=== PATIENT | female | born 2000 | race Caucasian/White ===

== ENCOUNTER 2021-06-17 03:06 | Inpatient (IN) ==
[2021-06-17] MEDS ORDERED: ONDANSETRON INJ 2 MG/ML 2 ML VIAL IV STA (03:35)
[2021-06-17] MEDS ORDERED: SODIUM CHLORIDE 0.9% 1000ML 1,000 ML IV ONE (03:35)
[2021-06-17] MEDS ORDERED: MoRPHine SULFATE 2 MG/ML CARP IV STA (03:35)
--- NOTE | 2021-06-17 03:37 | Emergency Department Note ---
Impression & Plan Acute appendicitis ADMIT ED Provider Note HPI: The patient is a 21-year-old female who presents emergency department with a chief complaint of lower abdominal cramping that has been ongoing for the past week. Patient states that last night around 9 PM she developed vomiting. On arrival to the ED the patient is hemodynamically stable, she is in no acute distress on my initial evaluation, she does not have any active vomiting. ROS: -GI: Lower abdominal pain, vomiting overnight *10 point review systems was conducted and is otherwise negative unless stated above *Outpatient medications and allergy history reviewed PE: General: Alert, NAD HEENT: Normocephalic, atraumatic Eyes: Extraocular eye movement is intact, no scleral erythema Pulmonary: Clear to auscultation bilaterally, no wheezing Cardio: Regular rate and rhythm GI: Abdomen is soft, there is tenderness in the right lower quadrant to palpation, no rigidity : No suprapubic tenderness MSK: No evidence of trauma or malformation of the extremities, no edema Skin: No evidence of rash Neuro: Alert, no focal deficits Psychiatric: Cooperative front desk monitor: - An order was placed for continuous cardiac monitoring - Patient was noted to be in sinus rhythm with rate of 90 CT ABDOMEN & PELVIS With Contrast: Impression: There is tubular structure in the right lower quadrant on image 59, series 2 which appears to represent the inflamed appendix. Extensive inflammatory changes seen in the right lower quadrant and right pelvis. The imaging findings are consistent with acute appendicitis Small amount of free fluid seen in the lower abdomen and pelvis. The possibility of appendiceal perforation cannot be excluded. Radiologist: Rojas Mosqueda MD Medical Decision Making: Patient presented to the emergency department with a chief complaint of lower abdominal pain and vomiting overnight. She states she is actually had some lower abdominal pain for about 10 days now. Vomiting to start overnight. IV was established, lab work obtained, lab work shows evidence of a leukocytosis, no critical electrolyte abnormalities are noted. CT imaging of the abdomen pelvis was obtained that shows evidence of acute appendicitis with possible perforation. YAAKOV morales the patient does not have any peritoneal signs, she does have tenderness in the right lower quadrant. She otherwise appears well on my exam and states her pain is improved following medications. I discussed the above findings with the on-call general surgeon, Dr. Cornejo, who is in agreement for admission. Patient will be admitted for surgical intervention, she was given cefoxitin prior to admission and blood cultures were drawn. She was admitted in stable condition. Diagnosis: 1. Lower abdominal pain, acute 2. Nausea and vomiting, acute 3. Acute appendicitis 4. Leukocytosis Disposition: Admission to surgery Stevan Olivares DO Emergency Medicine Past Med/Surg History Medical History (Updated 06/17/21 @ 05:55 by Stevan Olivares DO) Hypothyroidism Social History Smoking Status: Never smoker Preferred Language: Korean Feels Safe at Home: Yes Allergies Allergies Allergy/AdvReac Type Severity Reaction Status Date / Time No Known Allergies Allergy Verified 01/02/19 22:17 Home Meds Home Medications Medication Instructions Recorded Confirmed calcium carbonate 500 mg calcium 500 mg PO DAILY 01/02/19 01/02/19 (1,250 mg) chewable tablet (Calcium 500) conjugated estrogens 0.625 mg 0.625 mg PO DAILY 01/02/19 01/02/19 tablet (Premarin) medroxyprogesterone 150 mg/mL 150 mg IM DIRECTED 01/02/19 01/02/19 intramuscular suspension metronidazole 500 mg tablet 500 mg PO BID 01/02/19 01/02/19 multivitamin 1 tab PO DAILY 01/02/19 01/02/19 Results & Data (ED) Vital Signs Vital Signs - 24 hr 06/17/21 03:11 06/17/21 05:05 Temperature 36.4 C L Temperature Source Temporal Artery Scan Pulse Rate 90 Pulse Rate [Finger] 84 Respiratory Rate 16 20 Respiratory Effort / Characteristics Non-Labored Spontaneous Respiratory Depth Normal Normal Blood Pressure 120/63 Blood Pressure [Right Arm] 107/74 Blood Pressure Mean 82 Blood Pressure Mean [Right Arm] 85 Blood Pressure Position Sitting Pulse Oximetry 97 100 Oxygen Delivery Method Room Air Room Air Sepsis Recent Fever Within 48 Hours No Sepsis New/Unexplained Change in Mental Status No Sepsis Action Taken by Nursing No Action Required Laboratory Data Result diagrams: 06/17/21 03:40 06/17/21 03:40 Lab Results 06/17/21 06/17/21 06/17/21 Range/Units 03:40 03:40 03:40 WBC 14.32 H (4.8-10.8) K/uL RBC 4.51 (4.2-5.4) M/uL Hgb 13.7 (12.0-16.0) g/dL Hct 39.5 (37-47) % MCV 87.6 (80-100) fL MCH 30.4 (25-34) pg MCHC 34.7 (32-36) g/dL RDW Std Deviation 39.6 (36.4-46.3) fL RDW Coeff of Parveen 12.4 (11.5-14.5) % Plt Count 288 (130-400) K/uL MPV 8.9 (7.4-10.4) fL Immature Gran % (Auto) 0.2 % Neut % (Auto) 85.7 % Lymph % (Auto) 8.4 % [place] % (Auto) 5.3 % Eos % (Auto) 0.3 % Baso % (Auto) 0.1 % Neut # (Auto) 12.27 H (1.4-6.5) K/uL Lymph # (Auto) 1.21 (1.2-3.4) K/uL [place] # (Auto) 0.76 H (0.11-0.59) K/uL Eos # (Auto) 0.04 (0-0.5) K/uL Baso # (Auto) 0.01 (0-0.2) K/uL Immature Gran # (Auto) 0.03 H (0.00-0.02) K/uL Sodium 136 (136-145) mmol/L Potassium 3.6 (3.5-5.1) mmol/L Chloride 104 (98-107) mmol/L Carbon Dioxide 24 (21-32) mmol/L Anion Gap 8 (3-11) BUN 6 (6-23) mg/dl Creatinine 0.66 (0.6-1.2) mg/dl Est Cr Clr Drug Dosing 115.5 ml/min Est GFR ( Amer) 145.3 ml/min Est GFR (Non-Af Amer) 125.4 ml/min BUN/Creatinine Ratio 9.1 L (10-20) Glucose 91 (70-99(Fasting)) mg/dl Calcium 8.9 (8.5-10.1) mg/dl Total Bilirubin 0.6 (0.2-1.0) mg/dl AST 12 L (13-39) U/L ALT 10 (7-52) U/L Alkaline Phosphatase 62 (34-104) U/L Total Protein 7.2 (6.0-8.3) gm/dl Albumin 3.9 (3.4-5.0) gm/dl Globulin 3.3 (2.5-4.0) gm/dl Albumin/Globulin Ratio 1.2 (0.9-2) Lipase 9 L (11-82) U/L HCG, Qual Negative (Negative) Urine Color Urine Appearance (Clear) Urine pH (4.5-7.5) Ur Specific [place] (1.000-1.030) Urine Protein (Negative) Urine Glucose (UA) (Negative) Urine Ketones (Negative) Urine Blood (Negative) Urine Nitrite (Negative) Urine Bilirubin (Negative) Urine Urobilinogen (Negative) Ur Leukocyte Esterase (Negative) Urine WBC (Auto) (0-5) /hpf Urine RBC (Auto) (0-4) /hpf U Hyaline Cast (Auto) (0-5) /lpf U Epithel Cells (Auto) (0-5) /lpf Urine Bacteria (Auto) (Negative) 06/17/21 Range/Units 03:40 WBC (4.8-10.8) K/uL RBC (4.2-5.4) M/uL Hgb (12.0-16.0) g/dL Hct (37-47) % MCV (80-100) fL MCH (25-34) pg MCHC (32-36) g/dL RDW Std Deviation (36.4-46.3) fL RDW Coeff of Parveen (11.5-14.5) % Plt Count (130-400) K/uL MPV (7.4-10.4) fL Immature Gran % (Auto) % Neut % (Auto) % Lymph % (Auto) % [place] % (Auto) % Eos % (Auto) % Baso % (Auto) % Neut # (Auto) (1.4-6.5) K/uL Lymph # (Auto) (1.2-3.4) K/uL [place] # (Auto) (0.11-0.59) K/uL Eos # (Auto) (0-0.5) K/uL Baso # (Auto) (0-0.2) K/uL Immature Gran # (Auto) (0.00-0.02) K/uL Sodium (136-145) mmol/L Potassium (3.5-5.1) mmol/L Chloride (98-107) mmol/L Carbon Dioxide (21-32) mmol/L Anion Gap (3-11) BUN (6-23) mg/dl Creatinine (0.6-1.2) mg/dl Est Cr Clr Drug Dosing ml/min Est GFR ( Amer) ml/min Est GFR (Non-Af Amer) ml/min BUN/Creatinine Ratio (10-20) Glucose (70-99(Fasting)) mg/dl Calcium (8.5-10.1) mg/dl Total Bilirubin (0.2-1.0) mg/dl AST (13-39) U/L ALT (7-52) U/L Alkaline Phosphatase (34-104) U/L Total Protein (6.0-8.3) gm/dl Albumin (3.4-5.0) gm/dl Globulin (2.5-4.0) gm/dl Albumin/Globulin Ratio (0.9-2) Lipase (11-82) U/L HCG, Qual (Negative) Urine Color Yellow Urine Appearance Clear (Clear) Urine pH 8.0 H (4.5-7.5) Ur Specific [place] 1.004 (1.000-1.030) Urine Protein Negative (Negative) Urine Glucose (UA) Negative (Negative) Urine Ketones Negative (Negative) Urine Blood Negative (Negative) Urine Nitrite Negative (Negative) Urine Bilirubin Negative (Negative) Urine Urobilinogen Negative (Negative) Ur Leukocyte Esterase 3+ H (Negative) Urine WBC (Auto) >30 H (0-5) /hpf Urine RBC (Auto) 0-4 (0-4) /hpf U Hyaline Cast (Auto) 0 (0-5) /lpf U Epithel Cells (Auto) >30 H (0-5) /lpf Urine Bacteria (Auto) 1+ H (Negative) Administered Medications Discontinued Medications Sodium Chloride (Nss 1000ml) 1,000 mls @ 999 mls/hr IV .Q1H1M ONE Stop: 06/17/21 04:35 Last Infusion: 06/17/21 05:07 Dose: 0 mls/hr Documented by: [id number] Admin: 06/17/21 03:40 Dose: 999 mls/hr Documented by: [id number] Ioversol (Optiray 320 100ml) 100 ml IV ONCE ONE Stop: 06/17/21 04:59 Last Admin: 06/17/21 04:58 Dose: 93 ml Documented by: [id number] Morphine Sulfate (Morphine Sulfate 2 Mg/Ml Carp) 2 mg IV NOW STA Stop: 06/17/21 03:36 Last Admin: 06/17/21 03:39 Dose: 2 mg Documented by: [id number] Ondansetron HCl (Ondansetron Inj 2 Mg/Ml 2 Ml Vial) 4 mg IV NOW STA Stop: 06/17/21 03:36 Last Admin: 06/17/21 03:39 Dose: 4 mg Documented by: [id number] Discharge Plan Visit Data Chief Complaint: Abdominal Pain Stated Complaint: INTENSE STOMACH PAIN AND VOMITING ED Provider: Setvan Olivares Discharge Problem: Acute appendicitis Forms Stand Alone Forms: [facility] Prescriptions Prescriptions: No Action metronidazole 500 mg Tablet 500 mg PO BID RF: 0 Premarin 0.625 mg Tablet 0.625 mg PO DAILY RF: 0 calcium carbonate [Calcium 500] 500 mg calcium (1,250 mg) Tablet,Chewable 500 mg PO DAILY RF: 0 medroxyprogesterone 150 mg/mL Suspension 150 mg IM DIRECTED RF: 0 multivitamin Tablet,Chewable 1 tab PO DAILY RF: 0 Referrals [facility]errals: [facility] [Primary Care Provider] - Discharge Problem: Acute appendicitis Qualifiers: Acute appendicitis type: unspecified acute appendicitis type Qualified Code(s): K35.80 - Unspecified acute appendicitis
[2021-06-17 03:51] LABS: Basophils # (auto) 0.01 K/uL (0-0.2); Basophils % (auto) 0.1 %; Eosinophils # (auto) 0.04 K/uL (0-0.5); Eosinophils % (auto) 0.3 %; Hematocrit (blood only) 39.5 % (37-47); Hemoglobin 13.7 g/dL (12.0-16.0); Immature Granulocytes # (auto) 0.03 K/uL (0.00-0.02); Immature Granulocytes % (auto) 0.2 %; Lymphocytes # (auto) 1.21 K/uL (1.2-3.4); Lymphocytes % (auto) 8.4 %; Mean Corpuscular Hemoglobin 30.4 pg (25-34); Mean Corpuscular Hgb Conc 34.7 g/dL (32-36); Mean Corpuscular Volume 87.6 fL (80-100); Mean Platelet Volume 8.9 fL (7.4-10.4); Monocytes # (auto) 0.76 K/uL (0.11-0.59); Monocytes % (auto) 5.3 %; Neutrophils # (auto) 12.27 K/uL (1.4-6.5); Neutrophils % (auto) 85.7 %; Platelet Count 288 K/uL (130-400); RDW Coefficient of Variation 12.4 % (11.5-14.5); RDW Standard Deviation 39.6 fL (36.4-46.3); Red Blood Count 4.51 M/uL (4.2-5.4); White Blood Count 14.32 K/uL (4.8-10.8)
[2021-06-17 04:29] LABS: Pregnancy Test, Serum Negative (Negative)
[2021-06-17 04:40] LABS: Albumin Globulin Ratio 1.2 (0.9-2); Albumin Level 3.9 gm/dl (3.4-5.0); Appearance Urine Clear (Clear); BUN Creatinine Ratio 9.1 (10-20); Bacteria Urine Automated 1+ (Negative); Bilirubin Urine Negative (Negative); Bilirubin,Total 0.6 mg/dl (0.2-1.0); Blood Urine Negative (Negative); Calcium 8.9 mg/dl (8.5-10.1); Color Urine Yellow; Creatinine Clr Calc Pharmacy 115.5 ml/min; Epithelial Cell Urine Auto >30 /lpf (0-5); Est GFR (African American) 145.3 ml/min; Est GFR (Non-African American) 125.4 ml/min; Globulin 3.3 gm/dl (2.5-4.0); Glucose Urine UA Negative (Negative); Ketones Urine Negative (Negative); Leukocyte Esterase Urine 3+ (Negative); Nitrite Urine Negative (Negative); Potassium 3.6 mmol/L (3.5-5.1); Protein Urine Negative (Negative); RBC Urine Automated 0-4 /hpf (0-4); Specific Gravity Urine 1.004 (1.000-1.030); Total Protein 7.2 gm/dl (6.0-8.3); Urobilinogen Urine Negative (Negative); WBC Urine Automated >30 /hpf (0-5)
[2021-06-17] MEDS ORDERED: OPTIRAY 320 100ml IV ONE (04:58)
[2021-06-17] MEDS ORDERED: cefOXitin 2,000 MG/60 ML BAG IV STA (05:39)
[2021-06-17 05:52] LABS: Cast Urine Automated 0 /lpf (0-5)
--- NOTE | 2021-06-17 07:59 | CT Scan Report ---
CT SCAN OF THE ABDOMEN AND PELVIS WITH IV CONTRAST CLINICAL HISTORY: Lower abdominal pain. Nausea and vomiting. COMPARISON STUDY: Pelvic ultrasound dated 02/06/2019. TECHNIQUE: Following the IV administration of 93 cc of Optiray 320, CT scan of the abdomen and pelvi s is performed from the lung bases to the proximal femora. Images are reviewed in the axial, sagittal , and coronal planes. IV contrast was administered without complication. A dose lowering technique wa s utilized adhering to the principles of ALARA. CT DOSE: 273.44 mGy.cm FINDINGS: Lung bases: The heart is normal in size and without pericardial effusion. The lung bases are clear. Liver: The contrast-enhanced liver is normal in size, contour, and attenuation. There is no intrahepa tic biliary ductal dilatation. The hepatic veins and portal veins are patent. Gallbladder: Unremarkable. Spleen: Normal in size and attenuation. Pancreas: Unremarkable. Adrenal glands: Unremarkable. Kidneys: The contrast enhanced kidneys are normal in size and without hydronephrosis. The kidneys enh ance symmetrically. Abdominal vasculature: The abdominal aorta is normal in course and caliber. Bowel: There is no bowel obstruction. The appendix is markedly abnormal in appearance, best seen on i mage #[id number]. This is dilated, thick-walled, and hyperemic measuring up to 1.4 cm diameter. The appendic eal wall is indistinct and there is extensive inflammation in the right lower quadrant. This likely r epresents ruptured appendicitis. Thick-walled loops of small bowel in the pelvis are likely related t o adjacent appendicitis. Peritoneum: No intraperitoneal free air is identified. There is a small fat-containing umbilical palmer ia.. There is free fluid in the right paracolic gutter and throughout the pelvis. There is peritoneal thickening and enhancement involving a pocket of fluid anterior to the rectum seen on image #337. Th is measures 4.5 x 2.0 cm. There is peritoneal thickening and enhancement in the right lower quadrant around the appendix with phlegmonous change. This likely represents developing abscess. Lymphadenopathy: Mildly enlarged and hyperemic mesenteric lymph nodes in the right lower quadrant are likely reactive. Pelvic viscera: The bladder is distended but otherwise normal in appearance. The uterus is normal as visualized. The right ovary is enlarged and heterogeneous. This likely represents a reactive oophorit is. Follicles are also noted in the left ovary. Skeletal structures: No lytic or blastic lesions are seen. IMPRESSION: 1. Findings are consistent with acute appendicitis with rupture. 2. There is associated peritonitis throughout the pelvis. There is peritoneal thickening and enhancem ent with loculated fluid which likely represents phlegmonous change/developing abscesses. No discrete /drainable collection is identified at this time. 3. Mildly thick-walled loops of small bowel in the pelvis are likely related to adjacent appendicitis and there is also likely a reactive oophoritis of the right ovary. 4. There is no bowel obstruction. 5. Additional findings as above. ACT 112: Negative or not required by law. Electronically signed by: Kameron Overton M.D. 06/17/2021 7:56 AM
[2021-06-17] MEDS ORDERED: MoRPHine SULFATE 2 MG/ML CARP IV PRN (08:15)
[2021-06-17] MEDS ORDERED: ONDANSETRON INJ 2 MG/ML 2 ML VIAL IV PRN ×2 (08:15→10:16)
[2021-06-17] MEDS: LACTATED RINGER'S 1,000 ML IV SCH ×2 (08:46→17:07)
--- NOTE | 2021-06-17 10:01 | History & Physical Bridge Note ---
Date of Service June 17, 2021 History & Physical Bridge Note I have examined the patient, reviewed the History & Physical and in the interval since the performance of the History & Physical I have noted the following changes of clinical significance: no changes noted, I reviewed pt's H/P, labs and CT scan with pt, IMP: ruptured appendicitis, I recommend to do laparoscopic appendectomy, possible open, D/W benefits, risks and alternatives of the surgery, the risks - infection, bleeding, abscess, injury other organs, bowel obstruction, pt understood, she agrees with the surgery, she signed informed consent, I answered all questions, pre-op antibiotic,
[2021-06-17] MEDS: AMPICILLIN/SULBACTAM SOD 1,500 MG in 0.9 % SODIUM CHLORIDE 100 ML IV SCH ×3 (10:02→20:25)
[2021-06-17] MEDS ORDERED: ATROPINE SULFATE 0.1 MG/ML 10ML SYR IV PRN (10:16)
[2021-06-17] MEDS ORDERED: fentaNYL citrate 100 MCG/2 ML VIAL IV PRN (10:16)
[2021-06-17] MEDS ORDERED: LABETALOL HCL IV 5 MG/ML 20ML IV PRN (10:16)
[2021-06-17] MEDS ORDERED: PHENYLEPHRINE 100MCG/ML 5ML SYR IV PRN (10:16)
[2021-06-17] MEDS ORDERED: MEPERIDINE HCL 25 MG/ML CARP/VIAL IV PRN (10:16)
[2021-06-17] MEDS ORDERED: ePHEDrine sulfate 50 MG/ML AMP IV PRN (10:16)
[2021-06-17] MEDS ORDERED: HYDROmorphone INJ 1 MG/ML SYRINGE IV PRN (10:16)
--- NOTE | 2021-06-17 10:19 | Anesthesiology Consultation ---
Date of Service June 17, 2021 Assessment & Plan (1) Encounter for pre-operative examination: Chart Review Chart Review: Acceptable Risk for Surgery (necessary surgery) and Patient NOT seen in Pre Admission Testing Consults Requested none History Surgery Operation Date: 06/17/21 10:00 Proposed Procedures p Laparoscopic Appendectomy - Eveline Ge MD Height/Weight Height: 5 ft 4 in Weight: 59.8 kg Allergies Allergy/AdvReac Type Severity Reaction Status Date / Time No Known Allergies Allergy Verified 06/17/21 07:14 Medications Home Medications Medication Instructions Recorded Confirmed Last Taken magnesium oxide 200 mg PO DAILY 06/17/21 06/17/21 06/14/21 norethindrone 1 mg-ethinyl See Rx Instructions .ROUTE .COMPLEX 06/17/21 06/17/21 06/16/21 estradiol 20 mcg (21)-iron 75 mg (7) tablet ([place] Fe 03/12 (28)) Active Medications Generic Name Dose Route Start Last Admin Trade Name Sukhwinderq PRN Reason Stop Dose Admin Lactated Ringer's 1,000 mls @ 100 mls/hr 06/17/21 08:15 06/17/21 08:46 Lr IV 07/17/21 08:14 100 mls/hr .Q10H ANITA Administration Ampicillin Sodium/Sulbactam 104 mls @ 200 mls/hr 06/17/21 09:00 06/17/21 10:02 Sodium 1,500 mg/ Sodium IV 06/27/21 08:59 200 mls/hr Chloride Q6H ANITA Administration Protocol NPO Date Last Intake of Fluids: 06/17/21 Time Last Intake of Fluids: 05:00 Last Intake of Fluids Comment: water from pt's water bottle at bedside (500mL) - unknown to staff Date Last Intake of Solids: 06/16/21 Time Last Intake of Solids: 00:00 Last Intake of Solids Comment: 1 peep and handful or 2 of goldfish Past Medical History Medical History Hypothyroidism Social History Smoking Status: Never smoker Hx Alcohol Use: No Hx Substance Use: No Physical Exam Vital Signs Last Vital Signs Temp 37.6 C H 06/17/21 08:25 Pulse 82 06/17/21 08:25 Resp 16 06/17/21 08:25 BP 104/62 06/17/21 08:25 Pulse Ox 98 06/17/21 08:25 Testing Laboratory Results 06/17/21 03:40 06/17/21 03:40 Urine Color Yellow 06/17/21 03:40 Urine Appearance Clear (Clear) 06/17/21 03:40 Urine pH 8.0 (4.5-7.5) H 06/17/21 03:40 Ur Specific [place] 1.004 (1.000-1.030) 06/17/21 03:40 Urine Protein Negative (Negative) 06/17/21 03:40 Urine Glucose (UA) Negative (Negative) 06/17/21 03:40 Urine Ketones Negative (Negative) 06/17/21 03:40 Urine Nitrite Negative (Negative) 06/17/21 03:40 Ur Leukocyte Esterase 3+ (Negative) H 06/17/21 03:40 Urine WBC (Auto) >30 /hpf (0-5) H 06/17/21 03:40 Urine RBC (Auto) 0-4 /hpf (0-4) 06/17/21 03:40 U Hyaline Cast (Auto) 0 /lpf (0-5) 06/17/21 03:40 U Epithel Cells (Auto) >30 /lpf (0-5) H 06/17/21 03:40 Urine Bacteria (Auto) 1+ (Negative) H 06/17/21 03:[address] SCAN OF THE ABDOMEN AND PELVIS WITH IV CONTRAST CLINICAL HISTORY: Lower abdominal pain. Nausea and vomiting. COMPARISON STUDY: Pelvic ultrasound dated 02/06/2019. TECHNIQUE: Following the IV administration of 93 cc of Optiray 320, CT scan of the abdomen and pelvis is performed from the lung bases to the proximal femora. Images are reviewed in the axial, sagittal, and coronal planes. IV contrast was administered without complication. A dose lowering technique was utilized adhering to the principles of ALARA. CT DOSE: 273.44 mGy.cm FINDINGS: Lung bases: The heart is normal in size and without pericardial effusion. The lung bases are clear. Liver: The contrast-enhanced liver is normal in size, contour, and attenuation. There is no intrahepatic biliary ductal dilatation. The hepatic veins and portal veins are patent. Gallbladder: Unremarkable. Spleen: Normal in size and attenuation. Pancreas: Unremarkable. Adrenal glands: Unremarkable. Kidneys: The contrast enhanced kidneys are normal in size and without hydronephrosis. The kidneys enhance symmetrically. Abdominal vasculature: The abdominal aorta is normal in course and caliber. Bowel: There is no bowel obstruction. The appendix is markedly abnormal in appearance, best seen on image #291. This is dilated, thick-walled, and hyperemic measuring up to 1.4 cm diameter. The appendiceal wall is indistinct and there is extensive inflammation in the right lower quadrant. This likely represents ruptured appendicitis. Thick-walled loops of small bowel in the pelvis are likely related to adjacent appendicitis. Peritoneum: No intraperitoneal free air is identified. There is a small fat- containing umbilical hernia.. There is free fluid in the right paracolic gutter and throughout the pelvis. There is peritoneal thickening and enhancement involving a pocket of fluid anterior to the rectum seen on image #337. This measures 4.5 x 2.0 cm. There is peritoneal thickening and enhancement in the right lower quadrant around the appendix with phlegmonous change. This likely represents developing abscess. Lymphadenopathy: Mildly enlarged and hyperemic mesenteric lymph nodes in the right lower quadrant are likely reactive. Pelvic viscera: The bladder is distended but otherwise normal in appearance. The uterus is normal as visualized. The right ovary is enlarged and heterogeneous. This likely represents a reactive oophoritis. Follicles are also noted in the left ovary. Skeletal structures: No lytic or blastic lesions are seen. IMPRESSION: 1. Findings are consistent with acute appendicitis with rupture. 2. There is associated peritonitis throughout the pelvis. There is peritoneal thickening and enhancement with loculated fluid which likely represents phlegmonous change/developing abscesses. No discrete/drainable collection is identified at this time. 3. Mildly thick-walled loops of small bowel in the pelvis are likely related to adjacent appendicitis and there is also likely a reactive oophoritis of the right ovary. 4. There is no bowel obstruction. 5. Additional findings as above. ACT 112: Negative or not required by law. Electronically signed by: Kameron Overton M.D. 06/17/2021 7:56 AM
--- NOTE | 2021-06-17 10:23 | Surgery Consultation ---
Date of Consultation June 17, 2021 Assessment & Plan (1) Perforated appendicitis: pt is a 21 year-old female who presents with 1 wek history abdominal pain, IMP: perforated appendicitis, plan, I recommend to do laparoscopic appendectomy, possible open, D/W benefits, risks and alternatives of the surgery, the risks - infection, bleeding, abscess, injury other organs, bowel obstruction, pt understood, she agrees with the surgery, she signed informed consent, I answered all questions, pre-op antibiotic, History of Present Illness Reason for Consultation: appendicitis Requesting Physician: Stevan tovar MD Attending Physician: Brea Cornejo MD History of Present Illness CC: abdominal pain for 1 week, HPI:The patient is a 21-year-old female who presents emergency department with a chief complaint of lower abdominal cramping that has been ongoing for the past week. Patient states that last night around 9 PM she developed vomiting. On arrival to the ED the patient is hemodynamically stable, she is in no acute distress on my initial evaluation, she does not have any active vomiting. I ( Eveline Ge MD ) reviewed pt's H/P, labs, and CT scan with pt, Allergies Allergy/AdvReac Type Severity Reaction Status Date / Time No Known Allergies Allergy Verified 06/17/21 07:14 Home Medications Medication Instructions Recorded Confirmed Type magnesium oxide 200 mg PO DAILY 06/17/21 06/17/21 History norethindrone 1 mg-ethinyl See Rx Instructions .ROUTE .COMPLEX 06/17/21 06/17/21 History estradiol 20 mcg (21)-iron 75 mg (7) tablet ([place] [facility] 03/12 (28)) Patient History Medical History Hypothyroidism Social History Smoking Status: Never smoker Hx Alcohol Use: No Hx Substance Use: No Preferred Language: Welsh Communication Ability: Effective Beliefs That Will Affect Care: None Current Living Situation: Other Feels Safe at Home: Yes Assistive Devices: Glasses Review of Systems Constitutional: as per Subjective / HPI no distress Eyes: as per Subjective / HPI Respiratory: as per Subjective / HPI Cardiovascular: as per Subjective / HPI Gastrointestinal: as per Subjective / HPI Musculoskeletal: as per Subjective / HPI Neurologic: as per Subjective / HPI Psychiatric: as per Subjective / HPI Endocrine: as per Subjective / HPI Hematologic / Lymphatic: as per Subjective / HPI Physical Exam Constitutional: WD/WN, vitals as above Eyes: PERRL, conjunctivae normal, anicteric sclerae Neck: trachea midline, no thyromegaly Respiratory: normal respiratory effort, lungs clear to auscultation Cardiovascular: RRR, no murmur, no edema Gastrointestinal (Abdomen): soft, tenderness at RLQ wit bound pain, no distend, BS + Musculoskeletal: no cyanosis or clubbing, extremities motor strength 5/5 Neurologic: patellar DTR's 2+ bilat, sensation intact Psychiatric: A+Ox3, euthymic affect Results & Data ([facility]) Vital Signs (Past 12 Hours) Vital Signs Temp Pulse Pulse Resp BP BP Pulse Ox 06/17/21 08:25 37.6 C H 82 16 104/62 98 06/17/21 07:00 79 15 110/70 97 06/17/21 05:54 91 H 14 117/73 98 06/17/21 05:05 84 20 107/74 100 06/17/21 03:11 36.4 C L 90 16 120/63 97 Laboratory Results Abnormal lab results 06/17/21 06/17/21 06/17/21 Range/Units 03:40 03:40 03:40 WBC 14.32 H (4.8-10.8) K/uL Neut # (Auto) 12.27 H (1.4-6.5) K/uL [place] # (Auto) 0.76 H (0.11-0.59) K/uL Immature Gran # (Auto) 0.03 H (0.00-0.02) K/uL BUN/Creatinine Ratio 9.1 L (10-20) AST 12 L (13-39) U/L Lipase 9 L (11-82) U/L Urine pH 8.0 H (4.5-7.5) Ur Leukocyte Esterase 3+ H (Negative) Urine WBC (Auto) >30 H (0-5) /hpf U Epithel Cells (Auto) >30 H (0-5) /lpf Urine Bacteria (Auto) 1+ H (Negative) Diagnostic Findings CT SCAN OF THE ABDOMEN AND PELVIS WITH IV CONTRAST CLINICAL HISTORY: Lower abdominal pain. Nausea and vomiting. COMPARISON STUDY: Pelvic ultrasound dated 02/06/2019. TECHNIQUE: Following the IV administration of 93 cc of Optiray 320, CT scan of the abdomen and pelvis is performed from the lung bases to the proximal femora. Images are reviewed in the axial, sagittal, and coronal planes. IV contrast was administered without complication. A dose lowering technique was utilized adhering to the principles of ALARA. CT DOSE: 273.44 mGy.cm FINDINGS: Lung bases: The heart is normal in size and without pericardial effusion. The lung bases are clear. Liver: The contrast-enhanced liver is normal in size, contour, and attenuation. There is no intrahepatic biliary ductal dilatation. The hepatic veins and portal veins are patent. Gallbladder: Unremarkable. Spleen: Normal in size and attenuation. Pancreas: Unremarkable. Adrenal glands: Unremarkable. Kidneys: The contrast enhanced kidneys are normal in size and without hydronephrosis. The kidneys enhance symmetrically. Abdominal vasculature: The abdominal aorta is normal in course and caliber. Bowel: There is no bowel obstruction. The appendix is markedly abnormal in appearance, best seen on image #291. This is dilated, thick-walled, and hyperemic measuring up to 1.4 cm diameter. The appendiceal wall is indistinct and there is extensive inflammation in the right lower quadrant. This likely represents ruptured appendicitis. Thick-walled loops of small bowel in the pelvis are likely related to adjacent appendicitis. Peritoneum: No intraperitoneal free air is identified. There is a small fat- containing umbilical hernia.. There is free fluid in the right paracolic gutter and throughout the pelvis. There is peritoneal thickening and enhancement involving a pocket of fluid anterior to the rectum seen on image #337. This measures 4.5 x 2.0 cm. There is peritoneal thickening and enhancement in the right lower quadrant around the appendix with phlegmonous change. This likely represents developing abscess. Lymphadenopathy: Mildly enlarged and hyperemic mesenteric lymph nodes in the right lower quadrant are likely reactive. Pelvic viscera: The bladder is distended but otherwise normal in appearance. The uterus is normal as visualized. The right ovary is enlarged and heterogeneous. This likely represents a reactive oophoritis. Follicles are also noted in the left ovary. Skeletal structures: No lytic or blastic lesions are seen. IMPRESSION: 1. Findings are consistent with acute appendicitis with rupture. 2. There is associated peritonitis throughout the pelvis. There is peritoneal thickening and enhancement with loculated fluid which likely represents phlegmonous change/developing abscesses. No discrete/drainable collection is identified at this time. 3. Mildly thick-walled loops of small bowel in the pelvis are likely related to adjacent appendicitis and there is also likely a reactive oophoritis of the right ovary. 4. There is no bowel obstruction. 5. Additional findings as above.
[2021-06-17] MEDS ORDERED: LIDOCAINE 1% LOCAL 20 ML VIAL ONE (10:24)
[2021-06-17] MEDS ORDERED: BUPIVACAINE 0.5 % 5 MG/1 ML MPF 30ML VIAL ONE (10:24)
[2021-06-17] MEDS ORDERED: BACITRACIN OINT 15 GM TUBE ONE (10:24)
[2021-06-17] MEDS ORDERED: fentaNYL citrate 100 MCG/2 ML VIAL ONE ×2 (10:30→11:48)
[2021-06-17] MEDS ORDERED: MIDAZOLAM HCL 1 MG/ML 2ML VIAL ONE (10:31)
[2021-06-17] MEDS ORDERED: PROPOFOL IV EMULSION 10 MG/ML 20 ML VIAL IV ONE ×2 (10:31→10:32)
[2021-06-17] MEDS ORDERED: NEOSTIGMINE METHYLSULFATE 1 MG/ML 10ML VIAL ONE (10:32)
[2021-06-17] MEDS ORDERED: LIDOCAINE 2% 2 ML VIAL/AMP(20MG/ML) INFIL ONE (10:32)
[2021-06-17] MEDS ORDERED: GLYCOPYRROLATE 0.2 MG/ML VIAL ONE (10:32)
[2021-06-17] MEDS ORDERED: ROCURONIUM BROMIDE 10 MG/ML 5 ML VIAL IV ONE (10:32)
[2021-06-17] MEDS ORDERED: ONDANSETRON INJ 2 MG/ML 2 ML VIAL ONE (10:32)
[2021-06-17] MEDS ORDERED: DEXAMETHASONE SOD INJ 4 MG/ML VIAL ONE (10:32)
[2021-06-17] MEDS ORDERED: PHENYLEPHRINE 100MCG/ML 5ML SYR ONE (11:02)
[2021-06-17] MEDS ORDERED: KETOROLAC 30 MG/ML VIAL ONE (11:42)
--- NOTE | 2021-06-17 11:59 | Post Operative Brief Note ---
Immediate Post Op Note v1 Date of Surgery June 17, 2021 Pre & Post Diagnosis Operation Date: 06/17/21 10:00 Pre-Op Diagnosis: Perforated appendicitis Post-Op Diagnosis: Perforated appendicitis I identified the patient and participated in the time-out.: Yes Procedure Operation Date: 06/17/21 10:00 Actual Procedures p Attempted Laparoscopic Appendectomy, Drain Placement(Not Applicable) - Eveline Ge MD Surgeon Eveline Ge MD Docent Coordinator surgical services asst Estimated Blood Loss 10 Findings Consistent with Post-Op Diagnosis free peritoneal fluid, significant inflammation on appendix with intense phlegmonous change and adjacent bowel inflammation, Fluids 800ml Specimens peritoneal fluid culture Drains Miller Catheter (16fr miller placed prior to start of procedure and removed at end) and Sudhir-Soto Drain (10mm flat drain) Anesthesia Type General Complications none Disposition Accompanied Patient To Recovery: Yes
[2021-06-17] MEDS ORDERED: DROPERIDOL 5 MG/2 ML VIAL IV STA (12:24)
--- NOTE | 2021-06-17 12:43 | Anesthesiology Progress Note ---
Date of Service June 17, 2021 Anesthesia Post Procedure Vital Signs Vital Signs: Temp Pulse Pulse Pulse Resp BP BP 06/17/21 12:35 78 17 107/61 06/17/21 12:25 88 18 107/68 06/17/21 12:15 79 19 129/71 06/17/21 12:05 36.5 C 108 H 16 128/59 L 06/17/21 10:22 36.9 C 99 H 20 131/82 06/17/21 08:25 37.6 C H 82 16 104/62 06/17/21 07:00 79 15 110/70 06/17/21 05:54 91 H 14 117/73 06/17/21 05:05 84 20 107/74 06/17/21 03:11 36.4 C L 90 16 120/63 Pulse Ox 06/17/21 12:35 96 06/17/21 12:25 95 06/17/21 12:15 100 06/17/21 12:05 100 06/17/21 10:22 99 06/17/21 08:25 98 06/17/21 07:00 97 06/17/21 05:54 98 06/17/21 05:05 100 06/17/21 03:11 97 Pain Intensity Abdomen: Pain Intensity: 3 Transfer of Care Handoff Completed per policy Notes Mental Status: alert / awake / arousable Patient Amnestic to Procedure: Yes Nausea / Vomiting: adequately controlled Pain: adequately controlled Airway Patency, RR, SpO2: stable & adequate BP & HR: stable & adequate Hydration State: stable & adequate Anesthetic Complications: no major complications apparent and Pt Satisfied with anesthetic care
[2021-06-17 13:30] LABS: Basophils # (auto) 0.02 K/uL (0-0.2); Basophils % (auto) 0.1 %; Hematocrit (blood only) 35.9 % (37-47); Hemoglobin 12.4 g/dL (12.0-16.0); Immature Granulocytes # (auto) 0.05 K/uL (0.00-0.02); Immature Granulocytes % (auto) 0.3 %; Mean Corpuscular Hemoglobin 29.7 pg (25-34); Mean Corpuscular Hgb Conc 34.5 g/dL (32-36); Mean Corpuscular Volume 86.1 fL (80-100); Mean Platelet Volume 8.7 fL (7.4-10.4); Monocytes # (auto) 0.24 K/uL (0.11-0.59); Monocytes % (auto) 1.4 %; Neutrophils # (auto) 16.63 K/uL (1.4-6.5); Neutrophils % (auto) 94.2 %; Platelet Count 247 K/uL (130-400); RDW Coefficient of Variation 12.5 % (11.5-14.5); RDW Standard Deviation 39.2 fL (36.4-46.3); Red Blood Count 4.17 M/uL (4.2-5.4); White Blood Count 17.64 K/uL (4.8-10.8)
[2021-06-17] MEDS: MoRPHine SULFATE 4 MG/ML 1 ML CARP\\VIAL IV PRN ×2 (14:51→20:36)
[2021-06-17] MEDS: oxyCODONE/ACETAMINOPHEN 5mg/325mg TAB PO PRN ×2 (17:06→22:39)
--- NOTE | 2021-06-17 22:33 | Operative Report (OR) ---
DATE OF PROCEDURE: 06/17/2021 PREOPERATIVE DIAGNOSIS: Ruptured acute appendicitis. POSTOPERATIVE DIAGNOSIS: Ruptured acute appendicitis with phlegmonous change. OPERATION: Attempted laparoscopic appendectomy, diagnostic laparoscopy, FAMILIA drainage. SURGEON: Eveline Ge MD. ANESTHESIA: General. ESTIMATED BLOOD LOSS: About 20 mL. FINDINGS: Ruptured appendicitis with phlegmonous change. Did not remove appendix due to significant inflammation. COMPLICATIONS: None. INDICATIONS FOR THE PROCEDURE: This is a 21-year-old female who presented to ED with abdominal pain. The patient had a CT scan diagnosis of ruptured appendicitis. I recommended to do laparoscopic heidi endectomy, possible open. I did talk to the patient about the benefit, risk, alternate procedure. I indicated the risks may include, but not limited to, such as bleeding, infection, injury to other or shanita, bile leak, abscess, bowel obstruction, incisional hernia, sepsis. The patient understands. Chuyita joelle signed informed consent and I answered all questions. DETAILS OF PROCEDURE: After we identified the patient and verified the procedure, we brought the pat ient to the OR, put the patient in the supine position on the OR table. The patient received SCD on bilateral legs to prevent DVT. Also, patient received 1500 mg of ampicillin IV for prophylactic anti biotic and the patient received general anesthesia without difficulty. Also, patient received a Fole y catheter insertion. Abdomen was prepped and draped in routine sterile fashion. After timeout, I in jected the local anesthesia by using 1% lidocaine mixed with 0.5% Marcaine just above the umbilicus, then I made a small incision just above umbilicus, opened fascia, opened peritoneum. Under direct vi trinh, put a Ginette trocar in, connected to CO2 to create pneumoperitoneum, flow rate at 6 liters per minute, pressure not more than 14 mmHg. Once we got a nice pneumoperitoneum, we put a camera in, looked around the abdomen, it shows there wa s some free flow into the peritoneum of cloudy fluid. We suctioned the cloudy fluid, sent for cultur e, and also around the appendix, there is significant inflammation, everything with intense inflammat ion because of phlegmonous change. Then, we put another two 5 mm trocars in the left lower quadrant. Once all trocars in, I tried to find the appendix because of significant inflammation, all intense inflammation and if I do more mobilization, it would possibly perforate the bowel also. Also, there was some inflammation near the cecum area and the small bowel where the tissues were fragile. At this moment, the patient is not feasible to do appendectomy, so I decided to put a FAMILIA drainage in the pel [place] area and then we flushed the abdomen with normal saline. We suctioned all the normal saline out and at this moment, we put 1 FAMILIA drainage with 3-0 nylon to fix the FAMILIA on the skin. Then, we removed all trocars under direct vision. No active bleeding from the trocar sites. Pneumoperitoneum was rel eased. Then I closed the umbilical incision fascial layer by using 0 Vicryl [id number] x2, closed subcu taneous layer by using 2-0 Vicryl interruptedly, closed skin by using 4-0 Vicryl continuous running, closed another two 5 mm trocar site of skin only by using 4-0 Vicryl. Then, we put the dressing on. The patient tolerated the procedure well. All instrument, needle, sponge counts were correct x2 at the end of the case. The patient was transferred to recovery room in stable condition. After the pr ocedure, I did talk to the patient and the patient's mom about the OR finding and the procedure we torri d, they understand. The specimen was sent to pathology. Job ID: [id number]
[2021-06-18] MEDS: LACTATED RINGER'S 1,000 ML IV SCH ×2 (01:54→14:10)
[2021-06-18] MEDS: AMPICILLIN/SULBACTAM SOD 1,500 MG in 0.9 % SODIUM CHLORIDE 100 ML IV SCH ×2 (01:54→08:30)
[2021-06-18 06:29] LABS: Basophils # (auto) 0.01 K/uL (0-0.2); Basophils % (auto) 0.1 %; Hematocrit (blood only) 33.9 % (37-47); Hemoglobin 11.5 g/dL (12.0-16.0); Immature Granulocytes # (auto) 0.05 K/uL (0.00-0.02); Immature Granulocytes % (auto) 0.3 %; Lymphocytes # (auto) 1.28 K/uL (1.2-3.4); Lymphocytes % (auto) 8.4 %; Mean Corpuscular Hemoglobin 29.8 pg (25-34); Mean Corpuscular Hgb Conc 33.9 g/dL (32-36); Mean Corpuscular Volume 87.8 fL (80-100); Monocytes # (auto) 0.96 K/uL (0.11-0.59); Monocytes % (auto) 6.3 %; Neutrophils # (auto) 12.86 K/uL (1.4-6.5); Neutrophils % (auto) 84.9 %; Platelet Count 258 K/uL (130-400); RDW Coefficient of Variation 12.7 % (11.5-14.5); RDW Standard Deviation 40.8 fL (36.4-46.3); Red Blood Count 3.86 M/uL (4.2-5.4); White Blood Count 15.16 K/uL (4.8-10.8)
[2021-06-18 06:52] LABS: Albumin Globulin Ratio 1.2 (0.9-2); Albumin Level 3.2 gm/dl (3.4-5.0); BUN Creatinine Ratio 14.8 (10-20); Bilirubin,Total 0.3 mg/dl (0.2-1.0); Calcium 8.5 mg/dl (8.5-10.1); Creatinine Clr Calc Pharmacy 124.9 ml/min; Est GFR (African American) 149.1 ml/min; Est GFR (Non-African American) 128.7 ml/min; Globulin 2.6 gm/dl (2.5-4.0); Potassium 4.2 mmol/L (3.5-5.1); Total Protein 5.8 gm/dl (6.0-8.3)
[2021-06-18] MEDS: CONTRACEPTIVE PO SCH (08:27)
[2021-06-18] MEDS: MAGNESIUM OXIDE 400 MG TAB PO SCH (08:27)
[2021-06-18] MEDS: BLISOVI FE PO SCH (08:27)
[2021-06-18] MEDS ORDERED: PIPERACILL/TAZOBAC CONSULT ACTIVE PRN (09:21)
[2021-06-18] MEDS ORDERED: HYDROmorphone INJ 0.5 MG/0.5 ML SYR IV PRN ×2 (09:21)
[2021-06-18] MEDS ORDERED: PIPERACILLIN/TAZOBACTAM 3.375 GM in DEXTROSE 5% 100 ML IV ONE (09:45)
[2021-06-18] MEDS: HYDROmorphone INJ 0.5 MG/0.5 ML SYR IV PRN ×2 (10:13→15:53)
--- NOTE | 2021-06-18 13:44 | Surgery Progress Note ---
Date of Service June 18, 2021 Assessment & Plan (1) Perforated appendicitis: Plan: Postop day #1 status post attempted laparoscopic appendectomy with surgical drain placement Afebrile Moderate severe postop pain currently not controlled rating it 8 out of 10 Urinating without difficulty Leukocytosis mildly improved to 15,000 17,000 preop No nausea or vomiting Plan: We will plan to stop the IV morphine and changed to IV Dilaudid as morphine not helping continue p.o. Percocet as needed for pain as well Continue IV Zofran as needed for nausea Continue IV fluids Will change IV Unasyn to IV Zosyn Continue FAMILIA drain to bulb suction Encourage ambulation Incentive spirometry SCDs Will likely need 2 to 3 days of IV antibiotics and transition to her oral antibiotics for a total 2-week course of antibiotics Can discuss interval appendectomy in [address] Ge was present during my examination and agrees with above Admission and Anticipated Discharge Date Admission Date: June 17, 2021 Subjective Still having a lot of pain currently rating pain about a 7 out of 10 No nausea or vomiting Has not been out of bed much because of the pain and discomfort Urinating without difficulty Physical Exam Constitutional: WD/WN, vitals as above + thin; no acute distress, not ill appearing and + uncomfortable Looks uncomfortable secondary to pain Neck: normal visual inspection and trachea midline Respiratory: normal respiratory effort; no respiratory distress Gastrointestinal (Abdomen): Inspection/Auscultation: + abdomen distended (Mild), + abdominal surgical incision (Covered with dry dressings) and + abdominal surgical drain present (Serosanguineous) Percussion/Palpation: + abdomen tender (Lower bilateral abdomen), + guarding (Lower bilateral abdomen voluntary) and abdomen soft; abdomen not rigid Skin: no rashes, warm and dry Psychiatric: Orientation: alert and oriented x 3 Results & Data ([facility]) Vital Signs (Past 12 Hours) Vital Signs Temp Pulse Resp BP Pulse Ox 06/18/21 10:52 36.9 C 80 16 127/66 98 06/18/21 08:09 36.8 C 71 16 110/57 L 98 06/18/21 04:00 36.6 C 76 14 119/58 L 98 Laboratory Results 06/18/21 06/18/21 Range/Units 06:07 06:07 WBC 15.16 H (4.8-10.8) K/uL RBC 3.86 L (4.2-5.4) M/uL Hgb 11.5 L (12.0-16.0) g/dL Hct 33.9 L (37-47) % MCV 87.8 (80-100) fL MCH 29.8 (25-34) pg MCHC 33.9 (32-36) g/dL RDW Std Deviation 40.8 (36.4-46.3) fL RDW Coeff of [place]ve[place] 12.7 (11.5-14.5) % Plt Count 258 (130-400) K/uL MPV 9.0 (7.4-10.4) fL Immature Gran % (Auto) 0.3 % Neut % (Auto) 84.9 % Lymph % (Auto) 8.4 % [place] % (Auto) 6.3 % Eos % (Auto) 0.0 % Baso % (Auto) 0.1 % Neut # (Auto) 12.86 H (1.4-6.5) K/uL Lymph # (Auto) 1.28 (1.2-3.4) K/uL [place] # (Auto) 0.96 H (0.11-0.59) K/uL Eos # (Auto) 0.00 (0-0.5) K/uL Baso # (Auto) 0.01 (0-0.2) K/uL Immature Gran # (Auto) 0.05 H (0.00-0.02) K/uL Sodium 136 (136-145) mmol/L Potassium 4.2 (3.5-5.1) mmol/L Chloride 107 (98-107) mmol/L Carbon Dioxide 21 (21-32) mmol/L Anion Gap 8 (3-11) BUN 9 (6-23) mg/dl Creatinine 0.61 (0.6-1.2) mg/dl Est Cr Clr Drug Dosing 124.9 ml/min Est GFR ( Amer) 149.1 ml/min Est GFR (Non-Af Amer) 128.7 ml/min BUN/Creatinine Ratio 14.8 (10-20) Glucose 91 (70-99(Fasting)) mg/dl Calcium 8.5 (8.5-10.1) mg/dl Total Bilirubin 0.3 (0.2-1.0) mg/dl AST 9 L (13-39) U/L ALT 8 (7-52) U/L Alkaline Phosphatase 50 (34-104) U/L Total Protein 5.8 L (6.0-8.3) gm/dl Albumin 3.2 L (3.4-5.0) gm/dl Globulin 2.6 (2.5-4.0) gm/dl Albumin/Globulin Ratio 1.2 (0.9-2)
[2021-06-18] MEDS: PIPERACILLIN/TAZOBACTAM 3.375 GM in DEXTROSE 5% 100 ML IV SCH ×2 (15:15→23:05)
[2021-06-18] MEDS ORDERED: diphenhydrAMINE 50 MG/ML VIAL IV STA (16:05)
[2021-06-18] MEDS: KETOROLAC TROMETHAMINE 15 MG/ML VIAL IV SCH ×2 (16:32→23:05)
[2021-06-18] MEDS: oxyCODONE/ACETAMINOPHEN 5mg/325mg TAB PO PRN (21:03)
[2021-06-19] MEDS: LACTATED RINGER'S 1,000 ML IV SCH ×3 (00:59→20:48)
[2021-06-19] MEDS: KETOROLAC TROMETHAMINE 15 MG/ML VIAL IV SCH ×4 (05:06→22:58)
[2021-06-19 06:33] LABS: Anion Gap 6 (3-11); BUN Creatinine Ratio 13.5 (10-20); Blood Urea Nitrogen 7 mg/dl (6-23); Calcium 8.3 mg/dl (8.5-10.1); Carbon Dioxide 24 mmol/L (21-32); Chloride 108 mmol/L (98-107); Creatinine Clr Calc Pharmacy 146.5 ml/min; Est GFR (African American) > 150.0 ml/min; Est GFR (Non-African American) 135.6 ml/min; Glucose 78 mg/dl (70-99(Fasting)); Potassium 3.7 mmol/L (3.5-5.1); Sodium 138 mmol/L (136-145)
[2021-06-19] MEDS: PIPERACILLIN/TAZOBACTAM 3.375 GM in DEXTROSE 5% 100 ML IV SCH ×3 (06:34→22:58)
[2021-06-19 06:48] LABS: Basophils # (auto) 0.01 K/uL (0-0.2); Basophils % (auto) 0.1 %; Eosinophils # (auto) 0.05 K/uL (0-0.5); Eosinophils % (auto) 0.6 %; Hematocrit (blood only) 32.7 % (37-47); Hemoglobin 10.5 g/dL (12.0-16.0); Immature Granulocytes # (auto) 0.02 K/uL (0.00-0.02); Immature Granulocytes % (auto) 0.2 %; Lymphocytes # (auto) 2.41 K/uL (1.2-3.4); Lymphocytes % (auto) 28.7 %; Mean Corpuscular Hemoglobin 29.3 pg (25-34); Mean Corpuscular Hgb Conc 32.1 g/dL (32-36); Mean Corpuscular Volume 91.3 fL (80-100); Mean Platelet Volume 9.3 fL (7.4-10.4); Monocytes # (auto) 0.58 K/uL (0.11-0.59); Monocytes % (auto) 6.9 %; Neutrophils # (auto) 5.34 K/uL (1.4-6.5); Neutrophils % (auto) 63.5 %; Platelet Count 257 K/uL (130-400); RDW Coefficient of Variation 12.9 % (11.5-14.5); RDW Standard Deviation 43.2 fL (36.4-46.3); Red Blood Count 3.58 M/uL (4.2-5.4); White Blood Count 8.41 K/uL (4.8-10.8)
[2021-06-19] MEDS: BLISOVI FE PO SCH (09:03)
[2021-06-19] MEDS: MAGNESIUM OXIDE 400 MG TAB PO SCH (09:03)
[2021-06-19] MEDS: CONTRACEPTIVE PO SCH (09:03)
--- NOTE | 2021-06-19 11:52 | Surgery Progress Note ---
Date of Service June 19, 2021 Assessment & Plan (1) Perforated appendicitis: Plan: Postop day #2 status post attempted laparoscopic appendectomy with surgical drain placement Afebrile postop pain better controlled Urinating without difficulty Leukocytosis resolved No nausea or vomiting Plan: Continue IV Toradol scheduled, po percocet and IV Dilaudid as needed for pain Continue IV Zofran as needed for nausea Continue IV fluids, decrease to 50 cc/hr Continue IV Zosyn Full liquids for dinner Continue CONCHIS drain to bulb suction Encourage ambulation Incentive spirometry SCDs Will likely need 2 to 3 days of IV antibiotics and transition to her oral antibiotics for a total 2-week course of antibiotics Can discuss interval appendectomy in 6 to 8 weeks [facility] surgery covering this weekend. Will go home with conchis drain. Follow-up with Dr. Ge Next Tuesday. Dr. Ge was present during my examination and agrees with above Admission and Anticipated Discharge Date Admission Date: June 17, 2021 Subjective pain is slightly better today 6/10 tolerating clear liquids no n,v feeling slightly bloated ambulated hallway last night no chest pain or shortness of breath Physical Exam Constitutional: WD/WN, vitals as above no acute distress and not ill appearing Neck: normal visual inspection and trachea midline Respiratory: normal respiratory effort; no respiratory distress Gastrointestinal (Abdomen): Inspection/Auscultation: + abdomen distended (mild), + abdominal surgical incision (clean/dry intact dressings), + abdominal surgical drain present (serosanguineous) and + hypoactive bowel sounds; + abnormal bowel sounds Percussion/Palpation: + abdomen tender (at incision sites), + guarding (voluntary at incision sites, improving), abdomen soft and + hepatosplenomegaly; abdomen not rigid Skin: no rashes, warm and dry Psychiatric: A+Ox3, euthymic affect Results & Data ([facility]) Vital Signs (Past 12 Hours) Vital Signs Temp Pulse Resp BP Pulse Ox 06/19/21 07:40 36.7 C 70 16 96/56 L 97 06/19/21 03:47 36.7 C 67 17 101/54 L 97 Laboratory Results 06/19/21 06/19/21 Range/Units 05:40 05:40 WBC 8.41 (4.8-10.8) K/uL RBC 3.58 L (4.2-5.4) M/uL Hgb 10.5 L (12.0-16.0) g/dL Hct 32.7 L (37-47) % MCV 91.3 (80-100) fL MCH 29.3 (25-34) pg MCHC 32.1 (32-36) g/dL RDW Std Deviation 43.2 (36.4-46.3) fL RDW Coeff of Parveen 12.9 (11.5-14.5) % Plt Count 257 (130-400) K/uL MPV 9.3 (7.4-10.4) fL Immature Gran % (Auto) 0.2 % Neut % (Auto) 63.5 % Lymph % (Auto) 28.7 % [place] % (Auto) 6.9 % Eos % (Auto) 0.6 % Baso % (Auto) 0.1 % Neut # (Auto) 5.34 (1.4-6.5) K/uL Lymph # (Auto) 2.41 (1.2-3.4) K/uL [place] # (Auto) 0.58 (0.11-0.59) K/uL Eos # (Auto) 0.05 (0-0.5) K/uL Baso # (Auto) 0.01 (0-0.2) K/uL Immature Gran # (Auto) 0.02 (0.00-0.02) K/uL Sodium 138 (136-145) mmol/L Potassium 3.7 (3.5-5.1) mmol/L Chloride 108 H (98-107) mmol/L Carbon Dioxide 24 (21-32) mmol/L Anion Gap 6 (3-11) BUN 7 (6-23) mg/dl Creatinine 0.52 L (0.6-1.2) mg/dl Est Cr Clr Drug Dosing 146.5 ml/min Est GFR ( Amer) > 150.0 ml/min Est GFR (Non-Af Amer) 135.6 ml/min BUN/Creatinine Ratio 13.5 (10-20) Glucose 78 (70-99(Fasting)) mg/dl Calcium 8.3 L (8.5-10.1) mg/dl
[2021-06-19] MEDS: oxyCODONE/ACETAMINOPHEN 5mg/325mg TAB PO PRN (14:45)
[2021-06-20] MEDS: KETOROLAC TROMETHAMINE 15 MG/ML VIAL IV SCH ×4 (05:04→22:34)
--- NOTE | 2021-06-20 05:54 | Surgery Progress Note ---
Date of Service June 20, 2021 Assessment & Plan (1) Perforated appendicitis: Plan: Patient is status post attempted appendectomy on 06/17/2021 (stop day #3) Continue analgesics Continue antiemetics Continue antibiotics in form of Zosyn Continue full liquid diet with consideration of advancing diet further once bowel function has improved Continue IV fluids until oral intake deemed adequate Continue FAMILIA drain to bulb suction; patient be discharged home with this Plans noted by primary service to perform an interval appendectomy she has received an adequate course of antibiotics Admission and Anticipated Discharge Date Admission Date: June 17, 2021 Supervising Physician Co-Signing Physician Notes I personally saw and evaluated the patient with Kolby Bass PA-C and agree with the assessment and plan. 21-year-old female status post attempted laparoscopic appendectomy with drain placement and washout She seems to be overall improved without a leukocytosis Advance her to a low fiber diet today to see how she tolerates, she still does have some distention but is passing flatus If she tolerates the diet she may be able to go home tomorrow with a drain in place and oral antibiotics Subjective Patient is resting comfortably in bed. She notes her pain is well controlled. She denies any nausea or vomiting. She is tolerating full liquids. Denies having bowel movement since surgery but is passing flatus. Physical Exam Gastrointestinal (Abdomen): Abdomen is soft and nondistended. She has appropriate pain near surgical incision. FAMILIA drain is in place draining serosanguineous fluid. Results & Data ([facility]) Vital Signs (Past 12 Hours) Vital Signs Temp Pulse Resp BP Pulse Ox 06/19/21 22:50 37 C 87 16 107/64 98 PG Care Time/CCT Total # of Minutes Spent Total Time Spent with Patient: Total time spent is greater than 50% in coordination of care (as documented) at patient's floor/unit and/or counseling patient: Coding Level of Care Code None Diagnoses Perforated appendicitis K35.32
[2021-06-20] MEDS: LACTATED RINGER'S 1,000 ML IV SCH ×2 (06:25→15:55)
[2021-06-20] MEDS: PIPERACILLIN/TAZOBACTAM 3.375 GM in DEXTROSE 5% 100 ML IV SCH ×3 (06:25→22:35)
[2021-06-20 07:50] LABS: Basophils # (auto) 0.03 K/uL (0-0.2); Basophils % (auto) 0.5 %; Eosinophils # (auto) 0.22 K/uL (0-0.5); Eosinophils % (auto) 3.8 %; Hematocrit (blood only) 33.7 % (37-47); Immature Granulocytes # (auto) 0.02 K/uL (0.00-0.02); Immature Granulocytes % (auto) 0.3 %; Lymphocytes # (auto) 1.67 K/uL (1.2-3.4); Lymphocytes % (auto) 28.7 %; Mean Corpuscular Hemoglobin 29.7 pg (25-34); Mean Corpuscular Hgb Conc 32.6 g/dL (32-36); Mean Corpuscular Volume 91.1 fL (80-100); Mean Platelet Volume 9.1 fL (7.4-10.4); Monocytes # (auto) 0.44 K/uL (0.11-0.59); Monocytes % (auto) 7.6 %; Neutrophils # (auto) 3.44 K/uL (1.4-6.5); Neutrophils % (auto) 59.1 %; Platelet Count 254 K/uL (130-400); RDW Coefficient of Variation 12.8 % (11.5-14.5); RDW Standard Deviation 42.9 fL (36.4-46.3); White Blood Count 5.82 K/uL (4.8-10.8)
[2021-06-20] MEDS: MAGNESIUM OXIDE 400 MG TAB PO SCH (08:49)
[2021-06-20] MEDS: CONTRACEPTIVE PO SCH (08:49)
[2021-06-20] MEDS: BLISOVI FE PO SCH (08:49)
[2021-06-21] MEDS: LACTATED RINGER'S 1,000 ML IV SCH (01:32)
--- NOTE | 2021-06-21 05:18 | Surgery Progress Note ---
Date of Service June 21, 2021 Assessment & Plan (1) Perforated appendicitis: Plan: Patient is status post attempted appendectomy on 06/17/2021 (stop day #4) Continue analgesics Continue antiemetics Continue antibiotics in form of Zosyn while hospitalized Continue diet as tolerated Continue IV fluids until oral intake deemed adequate Continue FAMILIA drain to bulb suction; patient be discharged home with this Plans noted by primary service to perform an interval appendectomy she has received an adequate course of antibiotics Admission and Anticipated Discharge Date Admission Date: June 20, 2021 Supervising Physician Co-Signing Physician Notes I personally saw and evaluated the patient with Kolby Bass PA-C and agree with the assessment and plan. 21-year-old female status post attempted laparoscopic appendectomy with drain placement and washout She tolerated her regular diet without issue She is stable for discharge home with drain in place and p.o. antibiotics She will follow-up with Dr. Ge this week to evaluate for drain removal Subjective Patient is resting comfortably in bed. She does report some minor lower abdominal pain. She denies any nausea or vomiting. She tolerated diet advancement to solid food yesterday. She does report passing flatus and having a bowel movement since her surgery. Physical Exam Gastrointestinal (Abdomen): Abdomen is soft and nondistended. FAMILIA drain is present draining mostly serous fluid. Patient does have some pain with palpation in the lower abdomen. Results & Data ([facility]) Vital Signs (Past 12 Hours) Vital Signs Temp Pulse Resp BP Pulse Ox 06/20/21 22:20 37.1 C 80 16 105/58 L 97 PG Care Time/CCT Total # of Minutes Spent Total Time Spent with Patient: Total time spent is greater than 50% in coordination of care (as documented) at patient's floor/unit and/or counseling patient: Coding Level of Care Code None Diagnoses Perforated appendicitis K35.32
[2021-06-21] MEDS: KETOROLAC TROMETHAMINE 15 MG/ML VIAL IV SCH (05:28)
[2021-06-21] MEDS: PIPERACILLIN/TAZOBACTAM 3.375 GM in DEXTROSE 5% 100 ML IV SCH (06:37)
--- NOTE | 2021-06-23 08:56 | Discharge Summary (DS) ---
DATE OF ADMISSION: 06/20/2021 DATE OF DISCHARGE: 06/21/2021. ADMISSION DIAGNOSIS: Perforated acute appendicitis. POSTOPERATIVE DIAGNOSIS: Perforated acute appendicitis. OPERATION: Attempted laparoscopic appendectomy. FAMILIA drainage x 1. SURGEON: Eveline Ge MD. DETAILS OF DISCHARGE SUMMARY: The patient is a 21-year-old female who presented to ED with acute abd ominal pain. The patient had a CT scan diagnosis of perforated appendicitis and we took the patient to OR and in the OR we found the patient had significant inflammation on the right lower quadrant are a with phlegmonous change and not feasible to remove the appendix. At this moment to remove appendix , we put 1 FAMILIA drainage and, otherwise, the patient tolerated the procedure well. After the procedure , the patient was transferred to recovery room and later on transferred to regular floor. The patien t is doing fine. The patient tolerated IV antibiotics. The pain is minimal and the patient was feel ing much better after the 4 days of IV antibiotic treatment. The patient denies any fever. No signi ficant abdominal pain. PHYSICAL EXAMINATION: VITAL SIGNS: Temperature is 37.1, respiratory rate 18, heart rate 89, O2 saturation 96% on room air, blood pressure 112/61. GENERAL: The patient is alert, awake, oriented x 3. HEENT: Within normal limitation. NEUROLOGIC: Intact. NECK: No JVD. CHEST: Bilateral lung sounds clear. HEART: Normal S1 and S2. No murmur. ABDOMEN: Soft, nondistended, mild tenderness on the incision site and all incisions intact. No redn ess, no drainage. FAMILIA drainage is intact. No rebound pain, no distention. Bowel sounds positive. EXTREMITIES: No edema. The patient wanted to go home with p.o. antibiotics. We sent home with p.o. antibiotics and the arie ent's FAMILIA drainage. The patient will come back to my office in 1 week to remove the FAMILIA drainage. We a lso gave the patient postoperative care instruction, the patient understands. Job ID: [id number]
== END 2021-06-21 09:30 | disposition home or self-care (01) | DRG 358 ==
LOC: ED 03:06 → 3W 03:06 → 3N 20:47

== ENCOUNTER 2021-06-28 01:21 | Inpatient (IN) ==
[2021-06-28] MEDS ORDERED: SODIUM CHLORIDE 0.9% 500 ML IV STA (01:35)
--- NOTE | 2021-06-28 02:22 | Emergency Department Note ---
Impression & Plan Perforated appendicitis, Intra-abdominal abscess ADMIT ED Provider Note HPI: The patient is a 21-year-old female with history of recent perforated appendicitis, initially attempted operative management with laparotomy however secondary to the extent of infection with phlegmonous change appendectomy was unable to be performed, patient had surgery aborted and FAMILIA drain was placed, she was treated with drain and IV antibiotics. Patient was subsequently discharged on 06/23, drain was removed, patient presents tonight with some lower abdominal pain that is been ongoing throughout the evening last evening, states that she took her temperature at home and it was about 100 F and she was concerned and therefore presents to the emergency department with her mother at the bedside. Patient is hemodynamically stable on arrival, afebrile. ROS: -GI: Lower abdominal pain -General: Fever by history *10 point review systems was conducted and is otherwise negative unless stated above *Outpatient medications and allergy history reviewed PE: General: Alert, NAD HEENT: Normocephalic, atraumatic Eyes: Extraocular eye movement is intact, no scleral erythema Pulmonary: Clear to auscultation bilaterally, no wheezing Cardio: Regular rate and rhythm GI: Abdomen is soft, there is tenderness in the lower abdomen to palpation, no rigidity : No suprapubic tenderness MSK: No evidence of trauma or malformation of the extremities, no edema Skin: No evidence of rash Neuro: Alert, no focal deficits Psychiatric: Cooperative monitor technician: - An order was placed for continuous cardiac monitoring - Patient was noted to be in sinus rhythm with rate of 90 CT ABDOMEN & PELVIS With Contrast: COMPARISON: CT abdomen pelvis 06/17/2021. IMPRESSION: Redemonstrated dilated tubular structure in the right lower quadrant with a 3 x 2.8 x 1.2 cm hypodensity. These findings are concerning for ruptured appendicitis with abscess. The remaining solid organs are within normal limits. No bowel obstruction. No fracture. Radiologist: Tereza Knott MD Study ready at 03:26 and initial results transmitted at 04:08 Communications: Clear Time Type Notes 06/28/21 04:12 Call Doctor Regarding Abo ve results, called Dr. Olivares on 06/28 04:12 Medical Decision Making: Patient presented to the emergency department with lower abdominal pain, states that she was having fever earlier this evening. On arrival here to the ED she overall appears well, this is all in the setting of recent attempted appendectomy that was aborted secondary to phlegmon and inflammation in the area of the perforated appendix. She was treated with IV antibiotics and FAMILIA drain, ultimately discharged home and drain was removed on by Dr. Ge who is also the physician that attempted the appendectomy on 06/17. Here in the ED shortly after arrival IV was established, lab work obtained, patient was placed on security monitor, lab work shows evidence of a leukocytosis of approximately 15,000, otherwise no critical electrolyte abnormalities are noted, no acute kidney injury. Patient was given IV fluids, she was given morphine for pain and Zofran for nausea. Blood cultures were drawn in the ED, patient was given a dose of IV ceftriaxone. CT imaging of the abdomen pelvis was obtained and shows evidence of ruptured appendicitis with abscess. I did discuss the case with the interpreting radiologist, Dr. Knott, who does tell me that the CT scan does show evidence of developing abscess in comparison to CT scan from 06/17, states the wall of the appendix seems to be more disrupted than previous and abscess seems to have developed in the interim. Given the concerning findings on CT scan, I did discuss the case with on-call general surgery, Dr. Ge, he did evaluate the patient at the bedside and plan will be for admission to his service for further management and possible surgical intervention. Patient and her mother at the bedside are updated and aware of the above plan, she is in agreement for admission and the patient was admitted in stable condition. Diagnosis: 1. Intra-abdominal abscess 2. Lower abdominal pain, acute 3. Fever by history 4. Leukocytosis 5. Perforated appendicitis Disposition: Admission to surgery Stevan Olivares DO Emergency Medicine Past Med/Surg History Medical History Hypothyroidism Social History Smoking Status: Never smoker Hx Alcohol Use: No Hx Substance Use: No Preferred Language: Azeri Communication Ability: Effective Beliefs That Will Affect Care: None Current Living Situation: Other Feels Safe at Home: Yes Assistive Devices: None Allergies Allergies Allergy/AdvReac Type Severity Reaction Status Date / Time No Known Allergies Allergy Verified 06/17/21 07:14 Home Meds Home Medications Medication Instructions Recorded Confirmed norethindrone 1 mg-ethinyl See Rx Instructions .ROUTE .COMPLEX 06/17/21 06/28/21 estradiol 20 mcg (21)-iron 75 mg (7) tablet (Blisovi Fe 03/12 (28)) sumatriptan succinate 25 mg tablet 25 mg PO DIRECTED PRN 06/28/21 06/28/21 Previous Rx's Medication Instructions Recorded metronidazole 500 mg tablet 500 mg PO TID #30 tab 06/19/21 ciprofloxacin HCl 500 mg tablet 500 mg PO BID #20 tab 06/21/21 (Cipro) Results & Data (ED) Vital Signs Vital Signs - 24 hr 06/28/21 01:26 06/28/21 02:29 06/28/21 03:22 Temperature 37.4 C 36.8 C Temperature Source Oral Oral Pulse Rate 101 H 90 Respiratory Rate 18 18 20 Respiratory Effort / Characteristics Non-Labored Spontaneous Non-Labored Respiratory Depth Normal Normal Respiratory Pattern Regular Blood Pressure 116/60 Blood Pressure [Left Arm] Blood Pressure Mean 78 Blood Pressure Mean [Left Arm] Blood Pressure Position Sitting Pulse Oximetry 97 100 100 Oxygen Delivery Method Room Air Room Air Room Air Sepsis Recent Fever Within 48 Hours Yes Sepsis New/Unexplained Change in Mental Status N/A Sepsis Action Taken by Nursing No Action Required 06/28/21 04:43 Temperature Temperature Source Pulse Rate Respiratory Rate 18 Respiratory Effort / Characteristics Non-Labored Respiratory Depth Normal Respiratory Pattern Blood Pressure Blood Pressure [Left Arm] 110/67 Blood Pressure Mean Blood Pressure Mean [Left Arm] 81 Blood Pressure Position Pulse Oximetry 99 Oxygen Delivery Method Room Air Sepsis Recent Fever Within 48 Hours Sepsis New/Unexplained Change in Mental Status Sepsis Action Taken by Nursing Laboratory Data Result diagrams: 06/28/21 02:20 06/28/21 02:20 Lab Results 06/28/21 06/28/21 06/28/21 Range/Units 02:20 02:20 02:20 WBC 15.33 H (4.8-10.8) K/uL RBC 4.45 (4.2-5.4) M/uL Hgb 13.1 (12.0-16.0) g/dL Hct 38.5 (37-47) % MCV 86.5 (80-100) fL MCH 29.4 (25-34) pg MCHC 34.0 (32-36) g/dL RDW Std Deviation 40.5 (36.4-46.3) fL RDW Coeff of Parveen 12.7 (11.5-14.5) % Plt Count 290 (130-400) K/uL MPV 9.1 (7.4-10.4) fL Immature Gran % (Auto) 0.3 % Neut % (Auto) 79.6 % Lymph % (Auto) 12.4 % [place] % (Auto) 6.9 % Eos % (Auto) 0.7 % Baso % (Auto) 0.1 % Neut # (Auto) 12.20 H (1.4-6.5) K/uL Lymph # (Auto) 1.90 (1.2-3.4) K/uL [place] # (Auto) 1.06 H (0.11-0.59) K/uL Eos # (Auto) 0.11 (0-0.5) K/uL Baso # (Auto) 0.02 (0-0.2) K/uL Immature Gran # (Auto) 0.04 H (0.00-0.02) K/uL Sodium 135 L (136-145) mmol/L Potassium 3.5 (3.5-5.1) mmol/L Chloride 106 (98-107) mmol/L Carbon Dioxide 21 (21-32) mmol/L Anion Gap 8 (3-11) BUN 7 (6-23) mg/dl Creatinine 0.64 (0.6-1.2) mg/dl Est Cr Clr Drug Dosing 119.1 ml/min Est GFR ( Amer) 146.8 ml/min Est GFR (Non-Af Amer) 126.7 ml/min BUN/Creatinine Ratio 10.9 (10-20) Glucose 93 (70-99(Fasting)) mg/dl Calcium 9.0 (8.5-10.1) mg/dl Total Bilirubin 0.4 (0.2-1.0) mg/dl AST 11 L (13-39) U/L ALT 15 (7-52) U/L Alkaline Phosphatase 56 (34-104) U/L Total Protein 6.9 (6.0-8.3) gm/dl Albumin 3.9 (3.4-5.0) gm/dl Globulin 3.0 (2.5-4.0) gm/dl Albumin/Globulin Ratio 1.3 (0.9-2) Lipase 23 (11-82) U/L Urine Color Yellow Urine Appearance Clear (Clear) Urine pH 7.5 (4.5-7.5) Ur Specific [place] 1.007 (1.000-1.030) Urine Protein Negative (Negative) Urine Glucose (UA) Negative (Negative) Urine Ketones Negative (Negative) Urine Blood Negative (Negative) Urine Nitrite Negative (Negative) Urine Bilirubin Negative (Negative) Urine Urobilinogen Negative (Negative) Ur Leukocyte Esterase Negative (Negative) POC Ur Test (NEG) SARS-CoV-2, RNA, NAAT (NEGATIVE) 06/28/21 06/28/21 Range/Units 02:20 Unknown WBC (4.8-10.8) K/uL RBC (4.2-5.4) M/uL Hgb (12.0-16.0) g/dL Hct (37-47) % MCV (80-100) fL MCH (25-34) pg MCHC (32-36) g/dL RDW Std Deviation (36.4-46.3) fL RDW Coeff of Parveen (11.5-14.5) % Plt Count (130-400) K/uL MPV (7.4-10.4) fL Immature Gran % (Auto) % Neut % (Auto) % Lymph % (Auto) % [place] % (Auto) % Eos % (Auto) % Baso % (Auto) % Neut # (Auto) (1.4-6.5) K/uL Lymph # (Auto) (1.2-3.4) K/uL [place] # (Auto) (0.11-0.59) K/uL Eos # (Auto) (0-0.5) K/uL Baso # (Auto) (0-0.2) K/uL Immature Gran # (Auto) (0.00-0.02) K/uL Sodium (136-145) mmol/L Potassium (3.5-5.1) mmol/L Chloride (98-107) mmol/L Carbon Dioxide (21-32) mmol/L Anion Gap (3-11) BUN (6-23) mg/dl Creatinine (0.6-1.2) mg/dl Est Cr Clr Drug Dosing ml/min Est GFR ( Amer) ml/min Est GFR (Non-Af Amer) ml/min BUN/Creatinine Ratio (10-20) Glucose (70-99(Fasting)) mg/dl Calcium (8.5-10.1) mg/dl Total Bilirubin (0.2-1.0) mg/dl AST (13-39) U/L ALT (7-52) U/L Alkaline Phosphatase (34-104) U/L Total Protein (6.0-8.3) gm/dl Albumin (3.4-5.0) gm/dl Globulin (2.5-4.0) gm/dl Albumin/Globulin Ratio (0.9-2) Lipase (11-82) U/L Urine Color Urine Appearance (Clear) Urine pH (4.5-7.5) Ur Specific [place] (1.000-1.030) Urine Protein (Negative) Urine Glucose (UA) (Negative) Urine Ketones (Negative) Urine Blood (Negative) Urine Nitrite (Negative) Urine Bilirubin (Negative) Urine Urobilinogen (Negative) Ur Leukocyte Esterase (Negative) POC Ur Test NEG (NEG) SARS-CoV-2, RNA, NAAT NEGATIVE (NEGATIVE) Administered Medications Discontinued Medications Hydromorphone HCl (Hydromorphone Inj 0.5 Mg/0.5 Ml Syr) 0.5 mg IV NOW STA Stop: 06/28/21 05:19 Last Admin: 06/28/21 05:20 Dose: 0.5 mg Documented by: [id number] Sodium Chloride (Nss) 500 mls @ 999 mls/hr IV .Q31M STA Stop: 06/28/21 02:05 Last Infusion: 06/28/21 03:08 Dose: 0 mls/hr Documented by: [id number] Admin: 06/28/21 02:13 Dose: 999 mls/hr Documented by: [id number] Ceftriaxone Sodium (Rocephin) 2,000 mg in 70 mls @ 140 mls/hr IV NOW STA Stop: 06/28/21 04:43 Last Infusion: 06/28/21 05:07 Dose: 0 mls/hr Documented by: [id number] Admin: 06/28/21 04:35 Dose: 140 mls/hr Documented by: [id number] Ioversol (Optiray 320 100ml) 94 ml IV ONCE ONE Stop: 06/28/21 03:14 Last Admin: 06/28/21 03:13 Dose: 94 ml Documented by: [id number] Morphine Sulfate (Morphine Sulfate 4 Mg/Ml 1 Ml Carp\Vial) 4 mg IV NOW STA Stop: 06/28/21 04:16 Last Admin: 06/28/21 05:43 Dose: Not Given Documented by: [id number] Ondansetron HCl (Ondansetron Inj 2 Mg/Ml 2 Ml Vial) 4 mg IV NOW STA Stop: 06/28/21 04:16 Last Admin: 06/28/21 05:39 Dose: Not Given Documented by: [id number] Discharge Plan Visit Data Chief Complaint: Abdominal Pain Stated Complaint: IN THROUGH THE [facility] FOR [facility]END[facility] - PAIN ED Provider: Stevan Olivares Discharge Problem: Perforated appendicitis, Intra-abdominal abscess Forms Stand Alone Forms: [facility] [employer] Prescriptions Prescriptions: No Action norethindrone-e.estradiol-iron [Blisovi Fe 03/12 ()] 1 mg-20 mcg (21)/75 mg (7) tablet See Rx Instructions .ROUTE .COMPLEX RF: 0 metronidazole 500 mg tablet 500 mg PO TID Qty: 30 RF: 0 ciprofloxacin HCl [Cipro] 500 mg tablet 500 mg PO BID Qty: 20 RF: 0 sumatriptan succinate 25 mg tablet 25 mg PO DIRECTED PRN (Reason: Migraine Headache) RF: 0 Referrals Referrals: [facility] [Primary Care Provider] -
[2021-06-28 02:32] LABS: Basophils # (auto) 0.02 K/uL (0-0.2); Basophils % (auto) 0.1 %; Eosinophils # (auto) 0.11 K/uL (0-0.5); Eosinophils % (auto) 0.7 %; Hematocrit (blood only) 38.5 % (37-47); Hemoglobin 13.1 g/dL (12.0-16.0); Immature Granulocytes # (auto) 0.04 K/uL (0.00-0.02); Immature Granulocytes % (auto) 0.3 %; Lymphocytes % (auto) 12.4 %; Mean Corpuscular Hemoglobin 29.4 pg (25-34); Mean Corpuscular Volume 86.5 fL (80-100); Mean Platelet Volume 9.1 fL (7.4-10.4); Monocytes # (auto) 1.06 K/uL (0.11-0.59); Monocytes % (auto) 6.9 %; Neutrophils % (auto) 79.6 %; Platelet Count 290 K/uL (130-400); RDW Coefficient of Variation 12.7 % (11.5-14.5); RDW Standard Deviation 40.5 fL (36.4-46.3); Red Blood Count 4.45 M/uL (4.2-5.4); White Blood Count 15.33 K/uL (4.8-10.8)
[2021-06-28 02:37] LABS: Appearance Urine Clear (Clear); Bilirubin Urine Negative (Negative); Blood Urine Negative (Negative); Color Urine Yellow; Glucose Urine UA Negative (Negative); Ketones Urine Negative (Negative); Leukocyte Esterase Urine Negative (Negative); Nitrite Urine Negative (Negative); Protein Urine Negative (Negative); Specific Gravity Urine 1.007 (1.000-1.030); Urobilinogen Urine Negative (Negative); pH Urine 7.5 (4.5-7.5)
[2021-06-28 02:53] LABS: Albumin Globulin Ratio 1.3 (0.9-2); Albumin Level 3.9 gm/dl (3.4-5.0); BUN Creatinine Ratio 10.9 (10-20); Bilirubin,Total 0.4 mg/dl (0.2-1.0); Creatinine Clr Calc Pharmacy 119.1 ml/min; Est GFR (African American) 146.8 ml/min; Est GFR (Non-African American) 126.7 ml/min; Potassium 3.5 mmol/L (3.5-5.1); Total Protein 6.9 gm/dl (6.0-8.3)
[2021-06-28] MEDS ORDERED: OPTIRAY 320 100ml IV ONE (03:13)
[2021-06-28] MEDS ORDERED: cefTRIAXone SODIUM 2,000 MG/70 ML BAG IV STA (04:14)
[2021-06-28] MEDS ORDERED: MoRPHine SULFATE 4 MG/ML 1 ML CARP\\VIAL IV STA (04:15)
[2021-06-28] MEDS ORDERED: HYDROmorphone INJ 0.5 MG/0.5 ML SYR IV STA (05:18)
[2021-06-28] MEDS: ONDANSETRON INJ 2 MG/ML 2 ML VIAL IV STA ×2 (05:21→05:39)
--- NOTE | 2021-06-28 06:13 | Surgery Consultation ---
Date of Consultation June 28, 2021 Assessment & Plan (1) Intra-abdominal abscess: Pt is a 21 year-old female who presents to ER with fever , 100, and lower abdominal pain, pt had attempted laparoscopic appendectomy with FAMILIA drainage 11 days ago, the FAMILIA was removed 3 days ago, IMP: ruptured appendicitis with abscess Plan, base on 3 cm abscess, I recommend to admit pt to hospital for conservative treatment now, NPO, IV antibiotic and fluid, control pain, repeat labs in morning, base on significant inflammation on RLQ area, pt is not good candidate for surgery treatment now, again I will take pt to OR if pt's symptoms are getting worse in next 12-24 hours, D/W all benefits, risks and alternatives of the conservative and surgery treatment, pt and her Mom understood, they agree with conservative treatment first, I answered all questions, (2) Acute appendicitis: see above History of Present Illness Reason for Consultation: fever, lower abdominal pain Requesting Physician: Stevan Olivares MD Attending Physician: Eveline Ge MD History of Present Illness CC; fever, lower abdominal pain, HPI: The patient is a 21-year-old female with history of recent perforated appendicitis, initially attempted operative management with laparotomy however secondary to the extent of infection with phlegmonous change appendectomy was unable to be performed, patient had surgery aborted and FAMILIA drain was placed, she was treated with drain and IV antibiotics. Patient was subsequently discharged on 06/23, drain was removed, patient presents tonight with some lower abdominal pain that is been ongoing throughout the evening last evening, states that she took her temperature at home and it was about 100 F and she was concerned and therefore presents to the emergency department with her mother at the bedside. Patient is hemodynamically stable on arrival, afebrile. I ( Eveline Ge MD ) got a call for consult ruptured appendicitis with abscess, I reviewed pt's H/P, labs and CT scan with pt and her Mom, pt has mild lower abdominal pain, now T 36.8, Allergies Allergy/AdvReac Type Severity Reaction Status Date / Time No Known Allergies Allergy Verified 06/17/21 07:14 Home Medications Medication Instructions Recorded Confirmed Type norethindrone 1 mg-ethinyl See Rx Instructions .ROUTE .COMPLEX 06/17/21 06/28/21 History estradiol 20 mcg (21)-iron 75 mg (7) tablet (Blisovi Fe 03/12 (28)) metronidazole 500 mg tablet 500 mg PO TID #30 tab 06/19/21 06/28/21 Rx ciprofloxacin HCl 500 mg tablet 500 mg PO BID #20 tab 06/21/21 06/28/21 Rx (Cipro) sumatriptan succinate 25 mg tablet 25 mg PO DIRECTED PRN 06/28/21 06/28/21 History Patient History Medical History Hypothyroidism Social History Smoking Status: Never smoker Hx Alcohol Use: No Hx Substance Use: No Preferred Language: [place] Rican Communication Ability: Effective Beliefs That Will Affect Care: None Current Living Situation: Other Feels Safe at Home: Yes Assistive Devices: None Review of Systems Constitutional: as per Subjective / HPI no distress Eyes: as per Subjective / HPI Respiratory: as per Subjective / HPI Cardiovascular: as per Subjective / HPI Gastrointestinal: as per Subjective / HPI Genitourinary: as per Subjective / HPI Neurologic: as per Subjective / HPI Psychiatric: as per Subjective / HPI Endocrine: as per Subjective / HPI Hematologic / Lymphatic: as per Subjective / HPI Physical Exam Constitutional: WD/WN, vitals as above no distress Eyes: PERRL, conjunctivae normal, anicteric sclerae Neck: trachea midline, no thyromegaly Respiratory: normal respiratory effort, lungs clear to auscultation Cardiovascular: RRR, no murmur, no edema Gastrointestinal (Abdomen): soft, mild tenderness at RLQ, no rebound pain, no distend, BS + Musculoskeletal: no cyanosis or clubbing, extremities motor strength 5/5 Neurologic: patellar DTR's 2+ bilat, sensation intact Psychiatric: A+Ox3, euthymic affect Results & Data ([facility]) Vital Signs (Past 12 Hours) Vital Signs Temp Pulse Resp BP BP Pulse Ox 06/28/21 04:43 18 110/67 99 06/28/21 03:22 36.8 C 20 100 06/28/21 02:29 90 18 100 06/28/21 01:26 37.4 C 101 H 18 116/60 97 Laboratory Results Abnormal lab results 06/28/21 06/28/21 Range/Units 02:20 02:20 WBC 15.33 H (4.8-10.8) K/uL Neut # (Auto) 12.20 H (1.4-6.5) K/uL [place] # (Auto) 1.06 H (0.11-0.59) K/uL Immature Gran # (Auto) 0.04 H (0.00-0.02) K/uL Sodium 135 L (136-145) mmol/L AST 11 L (13-39) U/L Diagnostic Findings ruptured appendicitis with 3 cm abscess, (1) Acute appendicitis Acute appendicitis type: unspecified acute appendicitis type Qualified Code(s): K35.80 - Unspecified acute appendicitis
--- NOTE | 2021-06-28 07:37 | CT Scan Report ---
ABDOMEN AND PELVIS CT WITH IV CONTRAST CT DOSE: 272.28 mGy.cm HISTORY: Acute generalized abdominal pain Lower abdominal pain, recent appendicitis w/o surg TECHNIQUE: Multiaxial CT images of the abdomen and pelvis were performed following the IV administrat ion of 94 cc of Optiray, A dose lowering technique was utilized adhering to the principles of ALARA. COMPARISON STUDY: CT abdomen and pelvis 06/17/2021 FINDINGS: Imaged inferior cardiac chambers are unremarkable. Clear lung bases. No pneumatosis or pneu moperitoneum. Unremarkable spleen, pancreas, contracted gallbladder, adrenal glands and liver. Patenc y of the hepatic and portal veins. Unremarkable kidneys. There is mild right-sided pelvocaliectasis. No urolith. Mild urinary bladder distention. Unremarkable uterus and left ovary. Heterogeneous enhanc ement is again noted involving the right adnexal tissues. Aorta and IVC are unremarkable. Mildly enla rged lymph nodes of the right lower quadrant mesentery measure up to 11 mm. No bowel obstruction. There is moderate fecal retention. The appendix is markedly inflamed dilated wi th mucosal hyperemia measuring up to approximately 1.8 cm transversely. There is irregularity involvi ng the mid and distal appendiceal lumen concerning for perforation. Inflammatory stranding with small volume of free pelvic fluid is again noted within the right hemipelvis. Ill-defined peripherally enh ancing fluid collection contiguous with the distal appendix measures approximately 3.0 x 2.4 cm on im age 299. Adjacent loops of ileum demonstrating wall thickening with mucosal hyperemia. Decreased size of the previously noted peripherally enhancing fluid collection in the dependent pelvis which demons trates left discrete margins on today's study. Unremarkable soft tissues. No acute fracture. IMPRESSION: 1. Acute appendicitis redemonstrated with marked inflammation and dilation of the appendix. Findings suggestive of associated appendiceal perforation are noted with peripherally enhancing fluid abutting the appendiceal tip measuring up to 3.0 x 2.4 cm. This is suspicious for a developing abscess. No dr mojica fluid collection identified at this time. Close continued follow-up is needed. 2. The previously described loculated fluid collection within the dependent pelvis has decreased in s ize from the prior study. 3. Several loops of thickened ileum within the pelvis are likely reactive. No bowel obstruction. 4. Ileocolic adenopathy is also likely reactive. ACT 112: Negative or not required by law. The above report was generated using voice recognition software. It may contain grammatical, syntax o r spelling errors. Electronically signed by: Rick Mcdonough M.D. 06/28/2021 7:36 AM
[2021-06-28] MEDS ORDERED: SUMAtriptan succinate 25 MG TAB PO PRN (09:17)
[2021-06-28] MEDS ORDERED: HYDROmorphone INJ 1 MG/ML SYRINGE IV PRN (09:17)
[2021-06-28] MEDS ORDERED: PIPERACILL/TAZOBAC CONSULT ACTIVE PRN (09:17)
[2021-06-28] MEDS ORDERED: metroNIDAZOLE 500 MG TAB PO SCH (09:17)
[2021-06-28] MEDS ORDERED: PIPERACILLIN/TAZOBACTAM 3.375 GM in DEXTROSE 5% 100 ML IV ONE (09:45)
[2021-06-28] MEDS: D5W AND 1/2NSS + 20MEQ KCL 20 MEQ/1,000 ML BAG IV SCH (10:03)
[2021-06-28 10:31] LABS: Albumin Globulin Ratio 1.1 (0.9-2); Albumin Level 3.8 gm/dl (3.4-5.0); BUN Creatinine Ratio 7.6 (10-20); Bilirubin,Total 0.3 mg/dl (0.2-1.0); Creatinine Clr Calc Pharmacy 115.5 ml/min; Est GFR (African American) 145.3 ml/min; Est GFR (Non-African American) 125.4 ml/min; Globulin 3.4 gm/dl (2.5-4.0); Potassium 3.6 mmol/L (3.5-5.1); Total Protein 7.2 gm/dl (6.0-8.3)
[2021-06-28] MEDS: PIPERACILLIN/TAZOBACTAM 3.375 GM in DEXTROSE 5% 100 ML IV SCH ×2 (15:08→21:58)
[2021-06-28] MEDS: oxyCODONE/ACETAMINOPHEN 5mg/325mg TAB PO PRN (16:33)
[2021-06-29] MEDS: D5W AND 1/2NSS + 20MEQ KCL 20 MEQ/1,000 ML BAG IV SCH ×2 (01:50→15:56)
[2021-06-29] MEDS: PIPERACILLIN/TAZOBACTAM 3.375 GM in DEXTROSE 5% 100 ML IV SCH ×3 (06:07→23:12)
[2021-06-29 06:14] LABS: Basophils # (auto) 0.02 K/uL (0-0.2); Basophils % (auto) 0.1 %; Eosinophils # (auto) 0.14 K/uL (0-0.5); Hematocrit (blood only) 35.3 % (37-47); Hemoglobin 12.1 g/dL (12.0-16.0); Immature Granulocytes # (auto) 0.05 K/uL (0.00-0.02); Immature Granulocytes % (auto) 0.4 %; Lymphocytes # (auto) 1.64 K/uL (1.2-3.4); Lymphocytes % (auto) 11.8 %; Mean Corpuscular Hemoglobin 30.2 pg (25-34); Mean Corpuscular Hgb Conc 34.3 g/dL (32-36); Monocytes # (auto) 1.06 K/uL (0.11-0.59); Monocytes % (auto) 7.6 %; Neutrophils % (auto) 79.1 %; Platelet Count 276 K/uL (130-400); RDW Coefficient of Variation 12.6 % (11.5-14.5); RDW Standard Deviation 40.9 fL (36.4-46.3); Red Blood Count 4.01 M/uL (4.2-5.4); White Blood Count 13.91 K/uL (4.8-10.8)
[2021-06-29 06:39] LABS: Alanine Aminotransferase 11 U/L (7-52); Albumin Globulin Ratio 1.2 (0.9-2); Albumin Level 3.4 gm/dl (3.4-5.0); Alkaline Phosphatase 48 U/L (34-104); Anion Gap 7 (3-11); Aspartate Aminotransferase 9 U/L (13-39); BUN Creatinine Ratio 5.1 (10-20); Bilirubin,Total 0.4 mg/dl (0.2-1.0); Blood Urea Nitrogen 3 mg/dl (6-23); Calcium 8.6 mg/dl (8.5-10.1); Carbon Dioxide 21 mmol/L (21-32); Chloride 107 mmol/L (98-107); Creatinine Clr Calc Pharmacy 129.2 ml/min; Est GFR (African American) > 150.0 ml/min; Est GFR (Non-African American) 130.1 ml/min; Globulin 2.9 gm/dl (2.5-4.0); Glucose 96 mg/dl (70-99(Fasting)); Potassium 3.6 mmol/L (3.5-5.1); Sodium 135 mmol/L (136-145); Total Protein 6.3 gm/dl (6.0-8.3)
[2021-06-29] MEDS ORDERED: ONDANSETRON INJ 2 MG/ML 2 ML VIAL IV PRN ×2 (10:16→15:45)
[2021-06-29] MEDS ORDERED: HYDROmorphone INJ 1 MG/ML SYRINGE IV PRN (10:16)
[2021-06-29] MEDS ORDERED: ATROPINE SULFATE 0.1 MG/ML 10ML SYR IV PRN (10:16)
[2021-06-29] MEDS ORDERED: LABETALOL HCL IV 5 MG/ML 20ML IV PRN (10:16)
[2021-06-29] MEDS ORDERED: PHENYLEPHRINE 100MCG/ML 5ML SYR IV PRN (10:16)
[2021-06-29] MEDS ORDERED: MEPERIDINE HCL 25 MG/ML CARP/VIAL IV PRN (10:16)
[2021-06-29] MEDS ORDERED: ePHEDrine sulfate 50 MG/ML AMP IV PRN (10:16)
--- NOTE | 2021-06-29 10:22 | Anesthesiology Consultation ---
Date of Service June 29, 2021 Assessment & Plan (1) Encounter for pre-operative examination: Chart Review Chart Review: Acceptable Risk for Surgery and Patient NOT seen in Pre Admission Testing Consults Requested none History Surgery Operation Date: 06/29/21 12:55 Proposed Procedures p Laparoscopic Appendectomy - Eveline Ge MD Height/Weight Height: 5 ft 4 in Weight: 58.2 kg Allergies Allergy/AdvReac Type Severity Reaction Status Date / Time No Known Allergies Allergy Verified 06/17/21 07:14 Medications Home Medications Medication Instructions Recorded Confirmed Last Taken norethindrone 1 mg-ethinyl See Rx Instructions .ROUTE .COMPLEX 06/17/21 06/28/21 06/16/21 estradiol 20 mcg (21)-iron 75 mg (7) tablet ([place] Fe 03/12 ()) metronidazole 500 mg tablet 500 mg PO TID #30 tab 06/19/21 06/28/21 06/27/21 21:00 ciprofloxacin HCl 500 mg tablet 500 mg PO BID #20 tab 06/21/21 06/28/21 06/27/21 21:00 (Cipro) sumatriptan succinate 25 mg tablet 25 mg PO DIRECTED PRN 06/28/21 06/28/21 Unknown Active Medications Generic Name Dose Route Start Last Admin Trade Name Freq PRN Reason Stop Dose Admin Hydromorphone HCl 1 mg 06/28/21 09:17 06/29/21 09:27 Hydromorphone Inj 1 Mg/Ml Syringe IV 07/12/21 09:16 1 mg Q6H PRN Administration Pain Potassium Chloride/Dextrose/Sod Cl 20 meq in 1,000 mls @ 80 mls/hr 06/28/21 09:30 06/29/21 01:50 D5w And 1/2nss + 20meq Kcl IV 07/28/21 09:29 80 mls/hr .[id number] ANITA Administration Protocol Piperacillin Sod/Tazobactam 115 mls @ 28.75 mls/hr 06/28/21 15:00 06/29/21 10:08 Sod 3.375 gm/ Dextrose IV 07/08/21 14:59 Infused Q8H ANITA Infusion Protocol Miscellaneous 1 ea 06/28/21 16:00 06/29/21 07:47 Oral Contraceptive - Order Awaiting Action N/A 07/28/21 15:59 1 ea QS ANITA Administration Oxycodone/Acetaminophen 1 tab 06/28/21 09:17 06/28/21 16:33 Oxycodone/Acetaminophen 5mg/325mg Tab PO 07/12/21 09:16 1 tab Q4H PRN Administration Pain Past Medical History Medical History Hypothyroidism Social History Smoking Status: Never smoker Hx Alcohol Use: No Hx Substance Use: No Physical Exam Vital Signs Last Vital Signs Temp 37.1 C 06/29/21 07:26 Pulse 89 06/29/21 07:26 Resp 16 06/29/21 07:26 BP 103/63 06/29/21 07:26 Pulse Ox 96 06/29/21 07:26 Testing Laboratory Results 06/29/21 05:49 06/29/21 05:49 Urine Color Yellow 06/28/21 02:20 Urine Appearance Clear (Clear) 06/28/21 02:20 Urine pH 7.5 (4.5-7.5) 06/28/21 02:20 Ur Specific [place] 1.007 (1.000-1.030) 06/28/21 02:20 Urine Protein Negative (Negative) 06/28/21 02:20 Urine Glucose (UA) Negative (Negative) 06/28/21 02:20 Urine Ketones Negative (Negative) 06/28/21 02:20 Urine Nitrite Negative (Negative) 06/28/21 02:20 Ur Leukocyte Esterase Negative (Negative) 06/28/21 02:20 06/28/21 03:41 Aerobic Blood Culture - Preliminary Blood No growth in Aerobic bottle after 24 hours. Anaerobic Blood Culture - Preliminary No growth in Anaerobic bottle after 24 hours. 06/28/21 03:41 Aerobic Blood Culture - Preliminary Blood No growth in Aerobic bottle after 24 hours. Anaerobic Blood Culture - Preliminary No growth in Anaerobic bottle after 24 hours. 06/28/21 02:20 POC Ur Test NEG
[2021-06-29] MEDS ORDERED: PROPOFOL IV EMULSION 10 MG/ML 20 ML VIAL IV ONE (10:33)
[2021-06-29] MEDS ORDERED: fentaNYL citrate 100 MCG/2 ML VIAL ONE ×2 (10:33→12:05)
[2021-06-29] MEDS ORDERED: LIDOCAINE 2% 2 ML VIAL/AMP(20MG/ML) INFIL ONE (10:33)
[2021-06-29] MEDS ORDERED: GLYCOPYRROLATE 0.2 MG/ML VIAL ONE (10:33)
[2021-06-29] MEDS ORDERED: ROCURONIUM BROMIDE 10 MG/ML 5 ML VIAL IV ONE (10:33)
[2021-06-29] MEDS ORDERED: ONDANSETRON INJ 2 MG/ML 2 ML VIAL ONE ×2 (10:33→11:22)
[2021-06-29] MEDS ORDERED: NEOSTIGMINE METHYLSULFATE 1 MG/ML 10ML VIAL ONE (10:33)
[2021-06-29] MEDS ORDERED: DEXAMETHASONE SOD INJ 4 MG/ML VIAL ONE ×2 (10:33→11:22)
[2021-06-29] MEDS ORDERED: MIDAZOLAM HCL 1 MG/ML 2ML VIAL ONE (10:33)
--- NOTE | 2021-06-29 10:49 | Surgery Progress Note ---
Date of Service June 29, 2021 Assessment & Plan (1) Intra-abdominal abscess: Plan: Pt is a 21 year-old female who presents to ER with fever , 100, and lower abdominal pain, pt had attempted laparoscopic appendectomy with FAMILIA drainage 11 days ago, the FAMILIA was removed 3 days ago, IMP: ruptured appendicitis with abscess Plan, base on 3 cm abscess, I recommend to admit pt to hospital for conservative treatment now, NPO, IV antibiotic and fluid, control pain, repeat labs in morning, base on significant inflammation on RLQ area, pt is not good candidate for surgery treatment now, again I will take pt to OR if pt's symptoms are getting worse in next 12-24 hours, D/W all benefits, risks and alternatives of the conservative and surgery treatment, pt and her Mom understood, they agree with conservative treatment first, I answered all questions, 06/29/2021, 10: 51AM, F/U perforated appendicitis with abscess, pt is still have abdominal pain, not get better, pt want to have appendectomy, base on the perforated appendicitis with enlarge 1.4cm, I recommend to do la paroscopic appendectomy, possible open, D/W benefits, risks and alternatives of the surgery with pt and her Mom, [facility] risks - infection, bleeding, injury other organs, abscess, may could not remove appendix base on significant inflammation, bowel obstruction, they understood, they agree with the surgery, I answered all questions, pre- op antibiotic, (2) Acute appendicitis: Plan: see above Admission and Anticipated Discharge Date Admission Date: June 28, 2021 Subjective F/U perforated appendicitis with abscess, pt is still have lower abdominal pain, not get better, some nausea, no vomiting, WBC 13,900, T 37.1 Review of Systems Constitutional: as per Subjective / HPI no distress Eyes: as per Subjective / HPI Respiratory: as per Subjective / HPI Cardiovascular: as per Subjective / HPI Gastrointestinal: as per Subjective / HPI Genitourinary: as per Subjective / HPI Neurologic: as per Subjective / HPI Psychiatric: as per Subjective / HPI Endocrine: as per Subjective / HPI Hematologic / Lymphatic: as per Subjective / HPI Physical Exam Constitutional: WD/WN, vitals as above Eyes: PERRL, conjunctivae normal, anicteric sclerae Neck: trachea midline, no thyromegaly Respiratory: normal respiratory effort, lungs clear to auscultation Cardiovascular: RRR, no murmur, no edema Gastrointestinal (Abdomen): tenderness at lower abdomen, with rebound pain,and guarding, mild distend, BS +, Musculoskeletal: no cyanosis or clubbing, extremities motor strength 5/5 Neurologic: patellar DTR's 2+ bilat, sensation intact Psychiatric: A+Ox3, euthymic affect Results & Data ([facility]) Vital Signs (Past 12 Hours) Vital Signs Temp Pulse Resp BP Pulse Ox 06/29/21 10:38 36.9 C 70 18 114/70 100 06/29/21 07:26 37.1 C 89 16 103/63 96 06/28/21 23:45 104/67 06/28/21 23:34 37.1 C 88 15 94/60 L 99 Laboratory Results Abnormal lab results 06/29/21 06/29/21 Range/Units 05:49 05:49 WBC 13.91 H (4.8-10.8) K/uL RBC 4.01 L (4.2-5.4) M/uL Hct 35.3 L (37-47) % Neut # (Auto) 11.00 H (1.4-6.5) K/uL [place] # (Auto) 1.06 H (0.11-0.59) K/uL Immature Gran # (Auto) 0.05 H (0.00-0.02) K/uL Sodium 135 L (136-145) mmol/L BUN 3 L (6-23) mg/dl Creatinine 0.59 L (0.6-1.2) mg/dl BUN/Creatinine Ratio 5.1 L (10-20) AST 9 L (13-39) U/L Diagnostic Findings ABDOMEN AND PELVIS CT WITH IV CONTRAST CT DOSE: 272.28 mGy.cm HISTORY: Acute generalized abdominal pain Lower abdominal pain, recent appendicitis w/o surg TECHNIQUE: Multiaxial CT images of the abdomen and pelvis were performed following the IV administration of 94 cc of Optiray, A dose lowering technique was utilized adhering to the principles of ALARA. COMPARISON STUDY: CT abdomen and pelvis 06/17/2021 FINDINGS: Imaged inferior cardiac chambers are unremarkable. Clear lung bases. No pneumatosis or pneumoperitoneum. Unremarkable spleen, pancreas, contracted gallbladder, adrenal glands and liver. Patency of the hepatic and portal veins. Unremarkable kidneys. There is mild right-sided pelvocaliectasis. No urolith. Mild urinary bladder distention. Unremarkable uterus and left ovary. Heterogeneous enhancement is again noted involving the right adnexal tissues. Aorta and IVC are unremarkable. Mildly enlarged lymph nodes of the right lower quadrant mesentery measure up to 11 mm. No bowel obstruction. There is moderate fecal retention. The appendix is markedly inflamed dilated with mucosal hyperemia measuring up to approximately 1.8 cm transversely. There is irregularity involving the mid and distal appendiceal lumen concerning for perforation. Inflammatory stranding with small volume of free pelvic fluid is again noted within the right hemipelvis. Ill- defined peripherally enhancing fluid collection contiguous with the distal appendix measures approximately 3.0 x 2.4 cm on image 299. Adjacent loops of ileum demonstrating wall thickening with mucosal hyperemia. Decreased size of the previously noted peripherally enhancing fluid collection in the dependent pelvis which demonstrates left discrete margins on today's study. Unremarkable soft tissues. No acute fracture. IMPRESSION: 1. Acute appendicitis redemonstrated with marked inflammation and dilation of the appendix. Findings suggestive of associated appendiceal perforation are noted with peripherally enhancing fluid abutting the appendiceal tip measuring up to 3.0 x 2.4 cm. This is suspicious for a developing abscess. No drainable fluid collection identified at this time. Close continued follow-up is needed. 2. The previously described loculated fluid collection within the dependent pelvis has decreased in size from the prior study. 3. Several loops of thickened ileum within the pelvis are likely reactive. No bowel obstruction. 4. Ileocolic adenopathy is also likely reactive. (1) Acute appendicitis Acute appendicitis type: unspecified acute appendicitis type Qualified Code(s): K35.80 - Unspecified acute appendicitis
[2021-06-29] MEDS ORDERED: BACITRACIN OINT 15 GM TUBE ONE (10:51)
[2021-06-29] MEDS ORDERED: LIDOCAINE 1% LOCAL 20 ML VIAL ONE (10:51)
[2021-06-29] MEDS ORDERED: BUPIVACAINE 0.5 % 5 MG/1 ML MPF 30ML VIAL ONE (10:51)
--- NOTE | 2021-06-29 10:55 | History & Physical Bridge Note ---
Date of Service June 29, 2021 History & Physical Bridge Note I have examined the patient, reviewed the History & Physical and in the interval since the performance of the History & Physical I have noted the following changes of clinical significance: no changes noted
--- NOTE | 2021-06-29 14:11 | Post Operative Brief Note ---
Immediate Post Op Note v1 Date of Surgery June 29, 2021 Pre & Post Diagnosis Operation Date: 06/29/21 12:55 Pre-Op Diagnosis: perforated appendicitis with abscess Post-Op Diagnosis: perforated appendicitis with abscess I identified the patient and participated in the time-out.: Yes Procedure Operation Date: 06/29/21 12:55 Actual Procedures p Laparoscopic Appendectomy(Not Applicable) - Eveline Ge MD Surgeon Eveline Ge MD Foot Miter Operator surgical elastic knitter hand frame Estimated Blood Loss 20 Findings Consistent with Post-Op Diagnosis perforated appendicitis with abscess Fluids 1000ml Specimens appendix Drains Sudhir-Soto Drain (10 MM FLAT FAMILIA DRAIN TO 100 ML RESERVOIR) Anesthesia Type General Complications none Disposition Accompanied Patient To Recovery: Yes
[2021-06-29] MEDS: fentaNYL citrate 100 MCG/2 ML VIAL IV PRN ×2 (14:57→15:02)
--- NOTE | 2021-06-29 15:01 | Anesthesiology Progress Note ---
Date of Service June 29, 2021 Anesthesia Post Procedure Vital Signs Vital Signs: Temp Pulse Pulse Resp BP Pulse Ox 06/29/21 15:00 82 18 125/81 100 06/29/21 14:50 81 12 133/69 100 06/29/21 14:40 72 18 114/63 100 06/29/21 14:30 73 18 123/68 100 06/29/21 14:23 36.2 C L 78 19 112/75 100 06/29/21 10:38 36.9 C 70 18 114/70 100 06/29/21 07:26 37.1 C 89 16 103/63 96 06/28/21 23:45 104/67 06/28/21 23:34 37.1 C 88 15 94/60 L 99 06/28/21 15:06 37.6 C H 100 H 14 109/69 97 Pain Intensity Abdomen: Pain Intensity: 2 Transfer of Care Handoff Completed per policy Notes Mental Status: alert / awake / arousable Patient Amnestic to Procedure: Yes Nausea / Vomiting: adequately controlled Pain: adequately controlled Airway Patency, RR, SpO2: stable & adequate BP & HR: stable & adequate Hydration State: stable & adequate Anesthetic Complications: no major complications apparent and Pt Satisfied with anesthetic care
[2021-06-29] MEDS ORDERED: ACETAMINOPHEN 325 MG TAB PO PRN (15:45)
[2021-06-29] MEDS ORDERED: HYDROmorphone INJ 0.5 MG/0.5 ML SYR IV PRN (15:45)
[2021-06-29] MEDS: HYDROmorphone INJ 1 MG/ML SYRINGE IV PRN ×2 (15:58→19:27)
--- NOTE | 2021-06-29 17:01 | Operative Report (OR) ---
DATE OF PROCEDURE: 06/29/2021. PREOPERATIVE DIAGNOSIS: Perforated appendicitis with abscess. POSTOPERATIVE DIAGNOSIS: Perforated appendicitis with abscess. OPERATION: Laparoscopic appendectomy. SURGEON: Eveline Ge MD. ANESTHESIA: General. ESTIMATED BLOOD LOSS: About 20 mL. FINDINGS: Perforated appendicitis with abscess. COMPLICATIONS: None. INDICATIONS FOR THE PROCEDURE: This is a 21-year-old female who presented with perforated appendicit is with abscess about 1 week ago, and we took the patient to the OR, we did attempted appendectomy, l aparoscopy, however, due to significant inflammation we could not remove appendix, so we put a FAMILIA jerry inage and after we removed the FAMILIA drainage 3 days later, the patient presented to the ER with signifi cantly high temperature with a fever and patient was admitted to the hospital. The patient had a CT scan in ER, diagnosis of perforated acute appendicitis with abscess. We admitted the patient to hosp ital overnight. We tried to do conservative treatment, however, and today followed up the patient, ru paul still has a lot of abdominal pain with a bounding of abdomen and she was in rebound pain and a lso the patient wanted to go take out the appendix, so I recommended to do laparoscopic appendectomy, possible open. I did talk to the patient and the patient's mom about the benefit, risk, alternate p rocedure. I indicated the risks may include, but not limited, such as bleeding, infection, abscess, sepsis, injury to other organs, bowel obstruction, injury to bowel, incisional hernia. The patient u nderstands and patient signed informed consent. Also, mom agreed to proceed with procedure. I answe red all questions. DETAILS OF PROCEDURE: After we identified the patient and verified the procedure, we brought the pat ient to the OR, put the patient in the supine position on the OR table. The patient received SCD on bilateral legs to prevent DVT. Also, patient received 3.375 grams Zosyn IV for prophylactic antibiot ic. The patient received general anesthesia without difficulty. The abdomen was prepped and draped in routine sterile fashion. After timeout, I injected the local anesthesia by using 1% lidocaine mix ed with 0.5% Marcaine just above the umbilicus. Then, we used the older incision to make a same inci trinh just above the umbilicus, removed and freshened the suture and get in the abdomen under direct v ision, put a Ginette trocar in, connected to CO2 to create pneumoperitoneum again and put a camera in, looked around the abdomen and still there was some inflammation on the right lower quadrant area. T here was some free flow on the pelvic area. At this moment, we used another older two incisions, put 5 mm trocars on the left lower quadrant and another 5 mm trocar on the left side lower quadrant also. Then we suctioned the fluid. Once we sucti oned the fluid, we mobilized the cecum area and then we found the patient had significant inflammatio n and enlarged appendix. Appendix was enlarged and diameter about 1.4 cm and also with perforation w ith abscess about 3 x 3 cm. There was some pus came out, we did suctioned pus and sent for culture. Then, later on we changed the one 5 mm trocar to 15 mm trocar in order to put the staple in and once we completely mobilized the appendix, we used the Harmonic to take down the appendix. Then, we used an Endo-ESTHELA transection on the base of appendix and based on significant inflammation and scar aroun d the tip of the appendix and we used another staple for transection of half of appendix, then we wer e able to see the tip of the appendix. Then, we completely removed the tip of the appendix and reche cked, no active bleeding, no leak of the staple line, intact and then we removed the appendix through the catch bag. Then, we reinserted the Ginette trocar in, connected to CO2 to create pneumoperitoneu m, again looked around the abdomen, no active bleeding, no leaking from staple line. Then, we put one 10 mm FAMILIA drainage on the right lower quadrant area. We used a 3-0 nylon to fix a FAMILIA drainage on the skin and then we removed all trocars under direct vision. No active bleeding from t he trocar site. Pneumoperitoneum was released, then I closed the umbilical incision fascial layer by using 0 Vicryl [id number] x2, closed subcutaneous layer by using 2-0 Vicryl interruptedly, clos ed skin by using 4-0 Vicryl continuous running, closed another 15 mm trocar fascial layer by using 0 Vicryl [id number] x2, closed subcutaneous layer by using 2-0 Vicryl interruptedly, closed skin b y using 4-0 Vicryl interruptedly. Then, we put the dressing on. The patient tolerated the procedure well. All instrument, needle and sponge counts were correct x2 at the end of the case and the patie nt was transferred to recovery room in stable condition. The specimen was sent to pathology. After the procedure, I did talk to the patient and the patient's mom about the OR finding and the procedure we did, they understand. Job ID: [id number]
[2021-06-29] MEDS: oxyCODONE/ACETAMINOPHEN 5mg/325mg TAB PO PRN ×2 (17:17→21:23)
[2021-06-30] MEDS: D5W AND 1/2NSS + 20MEQ KCL 20 MEQ/1,000 ML BAG IV SCH ×2 (03:52→15:11)
[2021-06-30] MEDS: HYDROmorphone INJ 1 MG/ML SYRINGE IV PRN ×2 (05:50→16:48)
[2021-06-30] MEDS: PIPERACILLIN/TAZOBACTAM 3.375 GM in DEXTROSE 5% 100 ML IV SCH ×3 (05:51→23:43)
[2021-06-30 07:51] LABS: Basophils # (auto) 0.01 K/uL (0-0.2); Basophils % (auto) 0.1 %; Hematocrit (blood only) 35.5 % (37-47); Hemoglobin 11.8 g/dL (12.0-16.0); Immature Granulocytes # (auto) 0.05 K/uL (0.00-0.02); Immature Granulocytes % (auto) 0.4 %; Lymphocytes # (auto) 1.16 K/uL (1.2-3.4); Lymphocytes % (auto) 8.2 %; Mean Corpuscular Hemoglobin 28.9 pg (25-34); Mean Corpuscular Hgb Conc 33.2 g/dL (32-36); Mean Platelet Volume 9.2 fL (7.4-10.4); Monocytes # (auto) 1.01 K/uL (0.11-0.59); Monocytes % (auto) 7.1 %; Neutrophils # (auto) 11.96 K/uL (1.4-6.5); Neutrophils % (auto) 84.2 %; Platelet Count 316 K/uL (130-400); RDW Coefficient of Variation 12.6 % (11.5-14.5); RDW Standard Deviation 40.7 fL (36.4-46.3); Red Blood Count 4.08 M/uL (4.2-5.4); White Blood Count 14.19 K/uL (4.8-10.8)
[2021-06-30 09:15] LABS: Alanine Aminotransferase 10 U/L (7-52); Albumin Globulin Ratio 1.1 (0.9-2); Albumin Level 3.3 gm/dl (3.4-5.0); Alkaline Phosphatase 48 U/L (34-104); Anion Gap 7 (3-11); Aspartate Aminotransferase 8 U/L (13-39); BUN Creatinine Ratio 6.8 (10-20); Bilirubin,Total 0.4 mg/dl (0.2-1.0); Blood Urea Nitrogen 4 mg/dl (6-23); Calcium 8.6 mg/dl (8.5-10.1); Carbon Dioxide 24 mmol/L (21-32); Chloride 106 mmol/L (98-107); Creatinine Clr Calc Pharmacy 129.2 ml/min; Est GFR (African American) > 150.0 ml/min; Est GFR (Non-African American) 130.1 ml/min; Globulin 2.9 gm/dl (2.5-4.0); Glucose 131 mg/dl (70-99(Fasting)); Potassium 3.8 mmol/L (3.5-5.1); Sodium 137 mmol/L (136-145); Total Protein 6.2 gm/dl (6.0-8.3)
--- NOTE | 2021-06-30 09:18 | Surgery Progress Note ---
Date of Service June 30, 2021 Assessment & Plan (1) Intra-abdominal abscess: Plan: POD # 1 s/p laparoscopic appendectomy with drain placement, in setting of failed conservative management for perforated appendicitis - afebrile, vss - leukocytosis of 14k (15k on admission) - postop pain controlled - no n/v - drain serosanguineous Plan: Continue pain management as needed Clear liquids Continue conchis drain to bulb suction Continue IV Zosyn SCDs encouraged ambulation Discussed with Dr. Ge who is to evaluate patient later today. (2) Acute appendicitis: Plan: see above Admission and Anticipated Discharge Date Admission Date: June 28, 2021 Subjective feeling better since surgery pain controlled with pain medication no nausea or vomiting no chest pain or shortness of breath urinating without difficulty ambulated hallway yesterday Physical Exam Constitutional: WD/WN, vitals as above no acute distress and not ill appearing Neck: normal visual inspection and trachea midline Respiratory: normal respiratory effort; no respiratory distress Gastrointestinal (Abdomen): Inspection/Auscultation: abdomen normal to inspection, + abdomen distended (mild), + abdominal surgical incision (covered with dry dressings), + abdominal surgical drain present (serosanguineous) and + hypoactive bowel sounds; + abnormal bowel sounds Percussion/Palpation: + abdomen tender (at incision sites), + guarding (voluntary at incision sites) and abdomen soft; abdomen not rigid and abdomen not firm Skin: no rashes, warm and dry Psychiatric: A+Ox3, euthymic affect Results & Data ([facility]) Vital Signs (Past 12 Hours) Vital Signs Temp Pulse Resp BP Pulse Ox 06/30/21 07:05 36.7 C 87 16 109/66 98 06/30/21 03:34 36.9 C 82 16 107/65 97 06/29/21 21:55 36.9 C 76 16 109/65 98 Laboratory Results 06/30/21 06/30/21 Range/Units 07:07 07:07 WBC 14.19 H (4.8-10.8) K/uL RBC 4.08 L (4.2-5.4) M/uL Hgb 11.8 L (12.0-16.0) g/dL Hct 35.5 L (37-47) % MCV 87.0 (80-100) fL MCH 28.9 (25-34) pg MCHC 33.2 (32-36) g/dL RDW Std Deviation 40.7 (36.4-46.3) fL RDW Coeff of Parveen 12.6 (11.5-14.5) % Plt Count 316 (130-400) K/uL MPV 9.2 (7.4-10.4) fL Immature Gran % (Auto) 0.4 % Neut % (Auto) 84.2 % Lymph % (Auto) 8.2 % [place] % (Auto) 7.1 % Eos % (Auto) 0.0 % Baso % (Auto) 0.1 % Neut # (Auto) 11.96 H (1.4-6.5) K/uL Lymph # (Auto) 1.16 L (1.2-3.4) K/uL [place] # (Auto) 1.01 H (0.11-0.59) K/uL Eos # (Auto) 0.00 (0-0.5) K/uL Baso # (Auto) 0.01 (0-0.2) K/uL Immature Gran # (Auto) 0.05 H (0.00-0.02) K/uL Sodium 137 (136-145) mmol/L Potassium 3.8 (3.5-5.1) mmol/L Chloride 106 (98-107) mmol/L Carbon Dioxide 24 (21-32) mmol/L Anion Gap 7 (3-11) BUN 4 L (6-23) mg/dl Creatinine 0.59 L (0.6-1.2) mg/dl Est Cr Clr Drug Dosing 129.2 ml/min Est GFR ( Amer) > 150.0 ml/min Est GFR (Non-Af Amer) 130.1 ml/min BUN/Creatinine Ratio 6.8 L (10-20) Glucose 131 H (70-99(Fasting)) mg/dl Calcium 8.6 (8.5-10.1) mg/dl Total Bilirubin 0.4 (0.2-1.0) mg/dl AST 8 L (13-39) U/L ALT 10 (7-52) U/L Alkaline Phosphatase 48 (34-104) U/L Total Protein 6.2 (6.0-8.3) gm/dl Albumin 3.3 L (3.4-5.0) gm/dl Globulin 2.9 (2.5-4.0) gm/dl Albumin/Globulin Ratio 1.1 (0.9-2) Microbiology 06/28/21 03:41 Aerobic Blood Culture - Preliminary Blood No growth in Aerobic bottle after 48 hours. Anaerobic Blood Culture - Preliminary No growth in Anaerobic bottle after 48 hours. 06/28/21 03:41 Aerobic Blood Culture - Preliminary Blood No growth in Aerobic bottle after 48 hours. Anaerobic Blood Culture - Preliminary No growth in Anaerobic bottle after 48 hours. 06/29/21 Unknown Gram Stain - Final Appendix (1) Acute appendicitis Acute appendicitis type: unspecified acute appendicitis type Qualified Code(s): K35.80 - Unspecified acute appendicitis
[2021-06-30] MEDS: oxyCODONE/ACETAMINOPHEN 5mg/325mg TAB PO PRN ×4 (09:38→23:52)
[2021-06-30] MEDS ORDERED: diphenhydrAMINE 50 MG/ML VIAL IV STA (15:27)
[2021-06-30] MEDS ORDERED: diphenhydrAMINE 50 MG/ML VIAL ONE (15:29)
[2021-06-30] MEDS: DOCUSATE SODIUM 100 MG CAP PO SCH (20:39)
[2021-06-30] MEDS: diphenhydrAMINE 50 MG/ML VIAL IV SCH (23:43)
[2021-07-01] MEDS: HYDROmorphone INJ 1 MG/ML SYRINGE IV PRN (01:03)
[2021-07-01] MEDS: D5W AND 1/2NSS + 20MEQ KCL 20 MEQ/1,000 ML BAG IV SCH (03:19)
[2021-07-01] MEDS: PIPERACILLIN/TAZOBACTAM 3.375 GM in DEXTROSE 5% 100 ML IV SCH ×3 (06:29→23:35)
[2021-07-01] MEDS: oxyCODONE/ACETAMINOPHEN 5mg/325mg TAB PO PRN ×3 (06:29→16:36)
[2021-07-01] MEDS: diphenhydrAMINE 50 MG/ML VIAL IV SCH ×3 (06:30→23:35)
[2021-07-01 06:57] LABS: Basophils # (auto) 0.02 K/uL (0-0.2); Basophils % (auto) 0.2 %; Eosinophils # (auto) 0.04 K/uL (0-0.5); Eosinophils % (auto) 0.3 %; Hematocrit (blood only) 39.7 % (37-47); Hemoglobin 13.4 g/dL (12.0-16.0); Immature Granulocytes # (auto) 0.05 K/uL (0.00-0.02); Immature Granulocytes % (auto) 0.4 %; Lymphocytes # (auto) 1.54 K/uL (1.2-3.4); Mean Corpuscular Hemoglobin 29.8 pg (25-34); Mean Corpuscular Hgb Conc 33.8 g/dL (32-36); Mean Corpuscular Volume 88.2 fL (80-100); Mean Platelet Volume 8.8 fL (7.4-10.4); Monocytes # (auto) 1.16 K/uL (0.11-0.59); Neutrophils # (auto) 10.02 K/uL (1.4-6.5); Neutrophils % (auto) 78.1 %; Platelet Count 369 K/uL (130-400); White Blood Count 12.83 K/uL (4.8-10.8)
[2021-07-01] MEDS: DOCUSATE SODIUM 100 MG CAP PO SCH ×2 (07:43→21:40)
[2021-07-01] MEDS ORDERED: POLYETHYLENE (MIRALAX) 17 GM PACK PO STA (09:11)
--- NOTE | 2021-07-01 09:28 | Surgery Progress Note ---
Date of Service July 01, 2021 Assessment & Plan (1) Intra-abdominal abscess: Plan: POD # 2 s/p laparoscopic appendectomy with drain placement, in setting of failed conservative management for perforated appendicitis - afebrile, vss - leukocytosis of 12 K (15k on admission) - postop pain moderate and not well controlled - no n/v - drain serous Plan: Continue pain management as needed, will add scheduled IV Toradol as we had done this during her last admission which helped with her pain Advance diet to low fiber Continue IV Zosyn we will add IV Benadryl 12.5 mg to be given at time of Zosyn Continue conchis drain to bulb suction We will give one-time dose of p.o. MiraLAX and continue twice daily Colace SCDs Continue ambulation and out of bed to chair Repeat CBC in the a.m. hopeful discharge tomorrow Dr. Ge was present during my examination and agrees with above (2) Acute appendicitis: Plan: see above Admission and Anticipated Discharge Date Admission Date: June 28, 2021 Subjective Having a lot of pain when lying down No nausea no vomiting tolerating clear liquids Ambulating the hallway without difficulty Not passing any gas last bowel movement was on Tuesday Pain seems to be controlled with oral Percocet so far this morning but did require IV Dilaudid last evening. Mom is currently on the telephone and states that she is having a lot of pain. During her last admission we also tried IV Toradol for pain management as the p.o. Percocet and IV Dilaudid were not controlling her pain. Still having some itching with the Zosyn but the Benadryl helps. Physical Exam Constitutional: WD/WN, vitals as above no acute distress and not ill appearing Neck: normal visual inspection and trachea midline Respiratory: normal respiratory effort; no respiratory distress and no labored breathing Gastrointestinal (Abdomen): Inspection/Auscultation: + abdomen distended (mild), + abdominal surgical incision (covered with dry dressings), + abdominal surgical drain present (serous) and + hypoactive bowel sounds; + abnormal bowel sounds Percussion/Palpation: + abdomen tender (at incision sites and lower abdomen), + guarding (voluntary in lower abdomen near incision sites and drain site) and abdomen soft; abdomen not rigid Skin: no rashes, warm and dry Psychiatric: A+Ox3, euthymic affect Results & Data ([facility]) Vital Signs (Past 12 Hours) Vital Signs Temp Pulse Resp BP Pulse Ox 07/01/21 07:29 37.0 C 91 H 14 104/47 L 98 07/01/21 02:43 37.1 C 99 H 18 107/68 97 06/30/21 21:53 36.9 C 102 H 16 95/54 L 98 Laboratory Results 07/01/21 Range/Units 06:40 WBC 12.83 H (4.8-10.8) K/uL RBC 4.50 (4.2-5.4) M/uL Hgb 13.4 (12.0-16.0) g/dL Hct 39.7 (37-47) % MCV 88.2 (80-100) fL MCH 29.8 (25-34) pg MCHC 33.8 (32-36) g/dL RDW Std Deviation 42.0 (36.4-46.3) fL RDW Coeff of Parveen 13.0 (11.5-14.5) % Plt Count 369 (130-400) K/uL MPV 8.8 (7.4-10.4) fL Immature Gran % (Auto) 0.4 % Neut % (Auto) 78.1 % Lymph % (Auto) 12.0 % [place] % (Auto) 9.0 % Eos % (Auto) 0.3 % Baso % (Auto) 0.2 % Neut # (Auto) 10.02 H (1.4-6.5) K/uL Lymph # (Auto) 1.54 (1.2-3.4) K/uL [place] # (Auto) 1.16 H (0.11-0.59) K/uL Eos # (Auto) 0.04 (0-0.5) K/uL Baso # (Auto) 0.02 (0-0.2) K/uL Immature Gran # (Auto) 0.05 H (0.00-0.02) K/uL (1) Acute appendicitis Acute appendicitis type: unspecified acute appendicitis type Qualified Code(s): K35.80 - Unspecified acute appendicitis
[2021-07-01] MEDS: KETOROLAC TROMETHAMINE 15 MG/ML VIAL IV SCH ×3 (10:17→21:40)
[2021-07-02] MEDS: KETOROLAC TROMETHAMINE 15 MG/ML VIAL IV SCH ×2 (03:37→10:12)
[2021-07-02] MEDS: diphenhydrAMINE 50 MG/ML VIAL IV SCH (06:23)
[2021-07-02] MEDS: PIPERACILLIN/TAZOBACTAM 3.375 GM in DEXTROSE 5% 100 ML IV SCH (06:24)
[2021-07-02 07:06] LABS: Basophils # (auto) 0.03 K/uL (0-0.2); Basophils % (auto) 0.3 %; Eosinophils # (auto) 0.23 K/uL (0-0.5); Hematocrit (blood only) 32.8 % (37-47); Immature Granulocytes # (auto) 0.03 K/uL (0.00-0.02); Immature Granulocytes % (auto) 0.3 %; Lymphocytes # (auto) 1.59 K/uL (1.2-3.4); Mean Corpuscular Hemoglobin 29.3 pg (25-34); Mean Corpuscular Hgb Conc 33.5 g/dL (32-36); Mean Corpuscular Volume 87.2 fL (80-100); Mean Platelet Volume 8.6 fL (7.4-10.4); Monocytes # (auto) 0.92 K/uL (0.11-0.59); Monocytes % (auto) 8.1 %; Neutrophils # (auto) 8.57 K/uL (1.4-6.5); Neutrophils % (auto) 75.3 %; Platelet Count 291 K/uL (130-400); RDW Coefficient of Variation 12.9 % (11.5-14.5); RDW Standard Deviation 41.5 fL (36.4-46.3); Red Blood Count 3.76 M/uL (4.2-5.4); White Blood Count 11.37 K/uL (4.8-10.8)
[2021-07-02] MEDS: DOCUSATE SODIUM 100 MG CAP PO SCH (08:07)
[2021-07-02] MEDS: oxyCODONE/ACETAMINOPHEN 5mg/325mg TAB PO PRN (08:58)
--- NOTE | 2021-07-02 12:19 | Discharge Summary ---
Date of Service July 02, 2021 Admission HPI Per Admitting Provider The patient is a 21-year-old female with history of recent perforated appendicitis, initially attempted operative management with laparotomy however secondary to the extent of infection with phlegmonous change appendectomy was unable to be performed, patient had surgery aborted and CONCHIS drain was placed, she was treated with drain and IV antibiotics. Patient was subsequently discharged on 06/23, drain was removed, patient presents tonight with some lower abdominal pain that is been ongoing throughout the evening last evening, states that she took her temperature at home and it was about 100 F and she was concerned and therefore presents to the emergency department with her mother at the bedside. Patient is hemodynamically stable on arrival, afebrile. I ( Eveline Ge MD ) got a call for consult ruptured appendicitis with abscess, I reviewed pt's H/P, labs and CT scan with pt and her Mom, pt has mild lower abdominal pain, now T 36.8, Principal Diagnosis Acute perforated appendicitis with abscess Discharge Exam Constitutional WD/WN, vitals as above no acute distress and not ill appearing Neck normal visual inspection and trachea midline Respiratory normal respiratory effort; no respiratory distress and no labored breathing Gastrointestinal (Abdomen) Inspection/Auscultation: abdomen normal to inspection, normal bowel sounds and + abdominal surgical drain present (serous output); abdomen not distended Percussion/Palpation: + abdomen tender (at incision sites, appropriate postop) and abdomen soft; no guarding and abdomen not rigid Skin no rashes, warm and dry + incision (clean,dry,intact dressings) Psychiatric A+Ox3, euthymic affect Discharge Data Allergies Allergy/AdvReac Type Severity Reaction Status Date / Time No Known Allergies Allergy Verified 06/17/21 07:14 Consultations 06/28/21 05:13 Consult General Surgery Stat 06/28/21 05:58 ED Decision to Admit Stat Procedures Performed Operation Date: 06/29/21 12:55 Actual Procedures p Laparoscopic Appendectomy(Not Applicable) - Eveline Ge MD Ordered Studies 06/28/21 02:19 CT abd pelvis IV con only Urgent Hospital Course (1) Intra-abdominal abscess: Patient was readmitted on Tuesday06/28/2021 with conservative management with IV Zosyn, pain management as needed, IV Zofran as needed. She was re- evaluated on HD # 1 and her pain continued and was not improving. She elected to proceed with laparoscopic appendectomy. She underwent laparoscopic appendectomy and conchis drain placement by Dr. Ge. Patient tolerated procedure well and was transferred to recovery then to medical/surgical floor for postop care. She was kept NPO, IV Fluids, IV Zosyn, and pain management with IV Dilaudid and PO Percocet as needed. POD # 1 afebrile, vss, leukocytosis of 14K (13 k preop). Pain moderate. pain was moderate but controlled. Diet advanced to clear liquids. POD # 2, afebrile, vss, leukocytosis of 12k. Pain moderate and not well controlled. Still requiring IV Dilaudid. No flatus or bowel movement. Diet was advanced to low fiber diet, PO Miralax was given, and IV Toradol was scheduled 15 mg IV q 6 hours. POD # 3, afebrile,vss, leukocytosis down to 11k. POstop pain better controlled. + flatus and bowel movement. Less distended and tolerating low fiber diet. Patient was discharged home on POD # 3 in stable condition with conchis drain. Follow-up in surgical office in 1 week for drain removal. (2) Acute appendicitis: see above Total Time Total Time Spent Total Time Spent (In Minutes): 45 minutes Total Time Includes: Examination of the Patient, Discharge Planning and Medication Reconciliation Discharge Plan Discharge Items Patient Disposition: Home - Self-Care Reason For Visit: VOMITING,LOWER ABD PAIN Discharge Diagnosis: Acute perforated appendicitis with abscess s/p laparoscopic appendectomy Activity: Per Instructions section Non-emergency contact: Surgeon Call non-emergency contact if: your pain is not controlled, your pain is worsening, your pain is concerning for you, you have a fever, your temperature is above 101, your wound has increased redness, your wound has increased drainage and your wound pain has increased Follow-up/Referrals: [facility] [Primary Care Provider] - Eveline Ge MD [Physician] - 07/14/21 1:30 pm Diet: Regular Addtl Attending Provider Instructions: Post-Surgical ~Discharge Instructions Activity Recommendations: - lifting limitation: (20 pounds for 4 weeks), - exercise/sex/sports limit: (nonstrenuous for 2 weeks), - driving or machine use limit: (none for 1 week or until pain free and no longer taking narcotic pain medication), - Shower/bathe limit: (may shower beginning tomorrow) Diet: - Resume previous diet SPECIAL CARE INSTRUCTIONS: - May shower in 24 hours. Let water run over area and pat dry. - Leave steri strips on for one week and then remove. They may fall off on their own that is okay. - Sponge bath around drain site. Record drain output amount and color and bring record to office with you. Surgical drain will be removed in office. - Call the surgeon's office with any questions or concerns - - (ex. temperature higher than 101 degrees F, excessive bleeding or pain). MEDICATIONS: - Resume previous medications unless instructed otherwise by your surgeon. - May alternate extra strength Tylenol and Ibuprofen as needed for mild to moderate pain. -650 mg Tylenol every 6 hours as needed - Ibuprofen 600 mg every 6 hours as needed (take with food and limit continuous use for no more than 3 days) - Percocet 1 every 4 hours, as needed for moderate to severe pain - Recommend daily to twice a day [id number] stool softener (Colace) while taking narcotic pain medication to prevent constipation or straining. Drink plenty of water daily. - Take 7 days of the Cipro and Flagyl. Finish the Cipro and Flagyl you have at home and then the additional 5 days sent to your pharmacy for total of 7 days. FOLLOW UP VISIT: - If not already scheduled, please call the office to schedule a one week follow-up appointment with Elizabeth Sargent PA-C on 07/09/21. Office number Pending Studies at Discharge: No Stand-Alone Forms: [facility], Smoking Cess[facility] Medications and DC Order Prescriptions: New ciprofloxacin HCl 500 mg tablet 500 mg PO BID Qty: 10 RF: 0 metronidazole 500 mg tablet 500 mg PO TID Qty: 15 RF: 0 oxycodone-acetaminophen [Percocet] 5-325 mg tablet 1 tab PO Q4H PRN (Reason: pain) Qty: 10 RF: 0 Continued norethindrone-e.estradiol-iron [Blisovi Fe 03/12 (28)] 1 mg-20 mcg (21)/75 mg (7) tablet See Rx Instructions .ROUTE .COMPLEX RF: 0 metronidazole 500 mg tablet 500 mg PO TID Qty: 30 RF: 0 ciprofloxacin HCl [Cipro] 500 mg tablet 500 mg PO BID Qty: 20 RF: 0 sumatriptan succinate 25 mg tablet 25 mg PO DIRECTED PRN (Reason: Migraine Headache) RF: 0 Discharge Orders: Discharge Order (Routine); Ordered 07/02/21 Ordered By: Elizabeth Sargent Admission Data Admit Date/Time: 06/28/21 05:56 Attending Provider: Eveline Ge Admit Provider: Eveline Ge [facility] Other Providers: Eveline Ge Other Interventions: Discharge Summary Assessment (RN) Last Done: 07/02/21 11:32
== END 2021-07-02 13:03 | disposition home or self-care (01) | DRG 853 ==
LOC: ED 01:21 → 3N 05:56
DX: K35.33 Acute appendicitis with perforation, localized peritonitis, and gangrene, with abscess; A41.9 Sepsis, unspecified organism